=== PATIENT | male | born 1970 | race Caucasian/White ===

== ENCOUNTER 2023-04-21 23:51 | Emergency (ER) | payer MEDICARE, MEDICAID ==
[~2023-04-21] VITALS: Ht 185.4 cm; Wt 95.9 kg
[~2023-04-21 23:51] MED LIST: BACDS PO
[2023-04-22 00:01] VITALS: BP 112/71
[2023-04-22] MEDS ORDERED: TETanus/Pertussis (Acell)/Diphther VAC/PF (Tdap-Adult) 0.5ml syringe IMVAC ONE (04:30)
[2023-04-22] MEDS ORDERED: sulfamethoxazole/trimethoprim DS (800/160mg) tablet PO ONE (04:30)
[2023-04-22] MEDS ORDERED: clindamycin 150mg capsule PO ONE (04:30)
[2023-04-22] MEDS ORDERED: CLIN300C71 PO (04:32)
[2023-04-22] MEDS ORDERED: SULF1TAB49 PO (04:32)
== END 2023-04-22 04:54 | disposition home or self-care (01) ==
LOC: ER 23:52
DX: S80.861A Insect bite (nonvenomous), right lower leg, initial encounter (principal); L03.115 Cellulitis of right lower limb; W57.XXXA Bitten or stung by nonvenomous insect and other nonvenomous arthropods, initial encounter; Y93.89 Activity, other specified; Y92.89 Other specified places as the place of occurrence of the external cause; Y99.8 Other external cause status
CPT/HCPCS: 90471; 90715; 99283

== ENCOUNTER 2025-05-30 22:49 | Inpatient (IN) | payer MEDICAID, MEDICARE ==
[~2025-05-30] VITALS: Ht 185.4 cm; Wt 76.0 kg
[2025-05-30 23:47] LABS: MEAN PLATELET VOLUME 8.4 FL (7.4-10.4); RED CELL DISTRIBUTION WIDTH 15.3 % (11.5-14.5)
[2025-05-31] VITALS (16 sets, daily range): BP systolic 94–139; BP diastolic 67–88; PULSE 60–87; RESP 16–24; TEMP 97.7–98.6; O2SAT 93–100
[2025-05-31 00:04] LABS: CREATININE 1.38 MG/DL (0.60-1.10); PRO BRAIN NATRIURETIC PEPTIDE 115 PG/ML (0-125); TOTAL CARBON DIOXIDE 29.0 MMOL/L (24-32); eCRCL 65 ML/MIN; eGFR 54 ML/MIN
--- NOTE | 2025-05-31 00:07 | RADIOLOGY REPORT ---
CHEST RADIOGRAPH Indication: SOB, PNA Technique: Frontal and lateral view of the chest was obtained Comparison: None FINDINGS: Lines and Tubes: None Lungs: Moderate right perihilar opacification consistent with consolidation versus mass. Pleura: No effusion. No pneumothorax. Cardiomediastinal contours: Unremarkable Bones: Unremarkable IMPRESSION: 1. Right perihilar consolidation versus mass.
--- NOTE | 2025-05-31 02:57 | Physician Documentation ---
History of Present Illness ~ General Chief Complaint: Multiple Medical Complaints Stated Complaint: ASPIRATION Time Seen by MD: 02:56 OK to notify your PCP?: Yes Primary Medical Doctor: None Source: patient, RN/MD, EMS, RN notes reviewed, EMS notes reviewed, old records Mode of Arrival: EMS Exam Limitations: no limitations History of Present Illness Initial Comments 54 year old male with recent pneumonia seen in bed 01 [facility] of multiple medical comp laints. He states that tonight he was eating steak last night and he chocked on it. He has been coughing since eating the steak. He states he has been having difficulty breathing as well as difficulty walking which is new. Additionally he endorses recent fevers. Medication Reconciliation Allergies: Coded Allergies: No Known Allergies (Unverified , 05/30/25) Scheduled Prednisone* (Prednisone*), 3 TAB PO DAILY, (Reported) Miscellaneous Medications Amox Tr/Potassium Clavulanate 875/125 MG (Augmentin 875/125 MG), 1 TAB PO, (Reported) [Albuterol], 90 MCG INH, (Reported) [Unknown], (Reported) Discontinued Medications Sulfamethoxazole/Trimethoprim DS* (Bactrim DS Tab*), 2 TAB PO BID Discontinued Reason: patient no longer taking Past Medical History Past Medical History: Depression, Schizophrenia Past Surgical History: orthopedic surgeries Alcohol Use: Alcoholic Drug Use: methamphetamine Occupation: unemployed Review of Systems All Other Systems at this time: Reviewed and Negative ROS As stated above in the HPI, otherwise all systems are reviewed and negative. Physical Exam Physical Exam Vital Signs: RN Vital Signs have been reviewed: Yes, Temperature: 98.4, Source: Oral, Heart Rate: 91, Respiratory Rate: 14, BP: 139/89, Pulse Oximetry: 96, Weight: 73.200 Oxygen Flow Rate: 0 Pulse Oximetry Reflects: adequate oxygenation Physical Exam General: The patient is well developed, well nourished, nontoxic appearing and is in no acute distress. Skin: [place], warm and dry with no rashes. HEENT: Head was normocephalic and atraumatic. Eyes - pupils equal, round, reactive to light and accommodation. Extraocular movements were intact. Conjunctivae were nonicteric. Ears - bilateral tympanic membranes were normal. The mouth and oropharynx were clear with moist mucous membranes. There were no pharyngeal exudates or erythema. Neck: Supple and nontender. There was no jugular venous distention, lymphadenopathy, thyromegaly or masses. Chest: Rhonchi greater on left than right. No accessory muscle use. No dullness to percussion. Heart: Rate regular and rhythmic. S1, S2. No murmurs. Palpation of the chest wall was normal. No rubs or thrills. Abdomen: Soft, nontender and nondistended. Positive bowel sounds. No guarding or rebound. No hepatosplenomegaly or palpable masses. Extremities: No cyanosis, clubbing or edema. The patient moves all extremities. Pulses were equal and symmetric. Neurologic: Cranial nerves II-XII were intact. Sensation was intact to light touch throughout. Motor strength was 5/5 in all four extremities. Deep tendon reflexes were intact in both upper and lower extremities. Psychologic: The patient was oriented to person, place and time. The patient demonstrated appropriate judgement and insight. Progress Progress Note 7:30 a.m. message left with GI for esophageal obstruction 8:00 a.m. discussed the case with the hospitalist regarding possible aspiration pneumonia admission. As far as the mediastinal mass patient can have an outpatient fine-needle biopsy with Interventional Radiology 8:01 a.m. Cardiothoracic surgery states that that is isn't a procedure they would do and recommends that that can be CT-guided procedure 8:05 a.m. re-contacted the hospitalist regarding aspiration pneumonia leukocytosis need for admission. Mediastinal mass as mentioned above can be done on an outpatient basis and not an oncological emergency, after speaking to the hospitalist concern was that the etiologies of these problems can be related to a compressive mass on esophageal structures. Wants to wait for the input of GI to see if there is any compression. We will re-evaluate the patient after GI procedure. Cat scan however does not mentioned any compression of structures. Patient will be signed out to the morning physician. Results/Orders Reviewed/noted all lab results: Yes Results/Orders Orders - STUART CHÁVEZ MD Chest,Two Views (05/30/25 23:01) Culture Blood (05/30/25 23:01) Saline Lock (05/30/25 23:01) Oxygen (05/30/25 23:01) Ct Chest (05/31/25 03:11) Page Hospitalist (05/31/25 07:26) Fill Out Med Reconciliation (05/31/25 07:26) Md To Page (05/31/25 07:26) Clindamycin 300mg/D5w 50ml (Clindamycin (05/31/25 08:00) Completed Orders - STUART CHÁVEZ MD Chest,Two Views (05/30/25 23:01) Cbc/Diff (05/30/25 23:01) BMP (05/30/25 23:01) PBNP (05/30/25 23:01) Lacticsepsis (05/30/25 23:01) Ct Chest (05/31/25 03:11) Electrocardiogram (05/31/25 00:04) Ipratropium/Albuterol Nebule (Ipratrop/A (05/31/25 08:10) Vital Signs 05/30/25 05/30/25 05/31/25 05/31/25 22:52 23:49 00:12 01:51 Temp 98.4 Pulse 90 83 91 Resp 18 16 20 14 B/P (MAP) 152/104 166/110 (128) 139/89 (106) Pulse Ox 95 96 96 O2 Flow Rate 0 05/31/25 05/31/25 05/31/25 05/31/25 03:32 04:57 06:33 07:33 Pulse 85 79 66 Resp 22 15 18 B/P (MAP) 133/91 (105) 142/89 (106) 143/92 (109) Pulse Ox 93 95 97 O2 Flow Rate 0 05/31/25 07:40 Pulse 72 Resp 12 B/P (MAP) 124/90 (101) Pulse Ox 94 O2 Flow Rate 0 Laboratory Tests Test 05/30/25 23:33 White Blood Count 17.1 H Red Blood Count 4.70 Hemoglobin 13.2 L Hematocrit 39.9 L Mean Corpuscular Volume 84.8 Mean Corpuscular Hemoglobin 28.2 Mean Corpuscular Hemoglobin Concent 33.2 Red Cell Distribution Width 15.3 H Platelet Count 421 Mean Platelet Volume 8.4 Neutrophils (%) (Auto) 77.5 H Lymphocytes (%) (Auto) 6.3 L Monocytes (%) (Auto) 4.0 Eosinophils (%) (Auto) 11.4 H Basophils (%) (Auto) 0.8 Neutrophils # (Auto) 13.3 H Lymphocytes # (Auto) 1.1 Monocytes # (Auto) 0.7 Eosinophils # (Auto) 2.0 H Basophils # (Auto) 0.1 CBC Comment Sodium Level 143 Potassium Level 3.8 Chloride Level 107 Carbon Dioxide Level 29.0 Anion Gap 7 L Blood Urea Nitrogen 17 Creatinine 1.38 H Estimated GFR/1.73 m2 54 BUN/Creatinine Ratio 12.3 Glucose Level 124 H Lactic Acid Level 1.3 Calcium Level 9.4 Pro-B-Type Natriuretic Peptide 115 Albumin 3.3 L Chemistry Comments Microbiology Date/Time Source Procedure Growth Status 05/31/25 01:50 Blood Iv Start Blood Culture - Preliminary NEGATIVE (LESS THAN 24 HOURS) Resulted Re-Evaluation Re-Evaluation : Re-Evaluation: Unchanged Progress Patient was seen and examined. Patient is given reassurance. Patient was found they have some chest pain difficulty breathing as well as swallowing. Patient states he aspirated some meat as well as vomiting up some food. He states he removed three of four pieces of meat. Who presents with laboratory work showing a WBC of 17.1 hemoglobin 13 and 39 platelets 421 and a left shift of 77.5 lactic acid normal at 1.3. This is somewhat consistent with worsening pneumonia aspiration pneumonia. Patient received clindamycin. After CAT scan was obtained cat scan shows esophageal obstruction as well. I contacted GI for possible scoping. Patient is able to tolerate his secretions but there is a foot would bolus seen on CAT scan. Patient states he does not feel well hospitalist was then consulted for further workup and care. Patient will have emergent GI procedure. Continuous monitoring specialist interpretation shows normal sinus rhythm heart rate 80s, no ectopy, normal, my interpretation. Pulse oximetry monitor interpretation shows normal oxygenation at 95% room air, normal, my interpretation. EKG/XRAY/CT/US/VASC/MRI EKG : Additional Comment 0440: BATSHEVA Chávez interpreted EKG to reveal sinus rhythm at a rate of 84 bpm with a QTc of 447. Patient had good R wave progression with normal axis and interv als. Chest X-Ray : Additional Comments CHEST RADIOGRAPH Indication: SOB, PNA Technique: Frontal and lateral view of the chest was obtained Comparison: None FINDINGS: Lines and Tubes: None Lungs: Moderate right perihilar opacification consistent with consolidation versus mass. Pleura: No effusion. No pneumothorax. Cardiomediastinal contours: Unremarkable Bones: Unremarkable IMPRESSION: 1. Right perihilar consolidation versus mass. Electronically Signed by:GARETH DÍAZ MD Date & Time: 05/31/[address] : Impression CT CT CHEST INDICATION: CHEST PAIN EXAM DATE: 05/31/2025 06:34 AM COMPARISON: None RADIATION DOSE: CTDIvol: 10 mGy, DLP: 436 mGy*cm PROCEDURE: Helical CT images were obtained of the chest without intravenous contrast. Sagittal and coronal reconstructions are provided. ADDITIONAL IMAGES / REFORMATS: None All CT scans at this medical facility are performed using dose modulation techniques as appropriate to a performed exam including the following: Automated exposure control was utilized; adjustment of the MA and/or KV according to patient size; and use of iterative reconstruction technique. FINDINGS: Bones: Scattered degenerative changes are noted. Visualized Abdomen: Normal. Chest Wall: Normal. Soft tissues: Normal. Mediastinum: Possible posterior mediastinal mass measures up to 9.3 cm is incompletely visualized without IV contrast. Food debris is seen in the esophagus. Heart: Coronary artery calcifications are noted. Vessels: Normal. Lymph Nodes: Normal. Pleura: Normal. Airways: Debris in the trachea at the [place] and bilateral bronchioles. Lung: Normal. Other: None IMPRESSION: Possible posterior mediastinal mass measures up to 9.3 cm is incompletely visualized without IV contrast. Food debris is seen in the esophagus. Debris in the trachea at the [place] and bilateral bronchioles likely aspiration. Medical Decision Making Additional info obtained from: old records Departure Disposition: ADMITTED INPATIENT Admitted to Inpatient Unit: yes, to hospitalist, other (GI) Admission Level of Care: Med/Surg with Tele Impression: Primary Impression: Right sided pneumonia Additional Impressions: Aspiration pneumonia Qualified Codes: J69.0 - Pneumonitis due to inhalation of food and vomit Distal esophageal obstruction due to foreign body Mediastinal mass Condition: Guarded Referrals: NO PRIMARY CARE PROVIDER (PCP) Education Educated: Patient Educated regarding: diagnosis, prognosis, need for follow up Critical Care Note Total Time (mins): 33 Critical Care Note The very real possibility of a deterioration of this patient's condition required the highest level of my preparedness for sudden, emergent intervention. I provided critical care services, which included medication orders, frequent reevaluations of the patient's condition and response to treatment, ordering and reviewing test results, and discussing the case with various consultants. Excludes time spent performing separately billable procedures. The critical care time associated with the care of the patient was. 33 minutes Signature Scribe Signature: Scribed for Stuart Chávez MD by Georgette Reyna . 05/31/25 03:29 Attestation: The note accurately reflects work and decisions made by me.Stuart Chávez MD 05/31/25 02:57 STUART CHÁVEZ MD May 31, 2025 02:57 GEORGETTE KOVACS May 31, 2025 03:29
--- NOTE | 2025-05-31 06:13 | ELECTROCARDIOGRAPH REPORT ---
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 Stuart Knight Measurements Intervals [place] Rate: 84 P: 40 AR: 163 QRS: 58 QRSD: 100 T: 70 QT: 378 QTc: 447 Interpretive Statements Sinus rhythm RSR' in V1 or V2, probably normal variant ST elev, probable normal early repol pattern Electronically Signed On 05-31-2025 18:54:[address] Stuart Knight Please click the below link to view image of tracing.
--- NOTE | 2025-05-31 07:15 | RADIOLOGY REPORT ---
CT CT CHEST INDICATION: CHEST PAIN EXAM DATE: 05/31/2025 06:34 AM COMPARISON: None RADIATION DOSE: CTDIvol: 10 mGy, DLP: 436 mGy*cm PROCEDURE: Helical CT images were obtained of the chest without intravenous contrast. Sagittal and c oronal reconstructions are provided. ADDITIONAL IMAGES / REFORMATS: None All CT scans at this medical facility are performed using dose modulation techniques as appropriate t o a performed exam including the following: Automated exposure control was utilized; adjustment of th e MA and/or KV according to patient size; and use of iterative reconstruction technique. FINDINGS: Bones: Scattered degenerative changes are noted. Visualized Abdomen: Normal. Chest Wall: Normal. Soft tissues: Normal. Mediastinum: Possible posterior mediastinal mass measures up to 9.3 cm is incompletely visualized wit hout IV contrast. Food debris is seen in the esophagus. Heart: Coronary artery calcifications are noted. Vessels: Normal. Lymph Nodes: Normal. Pleura: Normal. Airways: Debris in the trachea at the [place] and bilateral bronchioles. Lung: Normal. Other: None IMPRESSION: Possible posterior mediastinal mass measures up to 9.3 cm is incompletely visualized without IV contr ast. Food debris is seen in the esophagus. Debris in the trachea at the [place] and bilateral bronchioles likely aspiration.
[2025-05-31] MEDS ORDERED: AMOX-580 PO (07:51)
[2025-05-31] MEDS ORDERED: ALBUTEROL INH (07:51)
[2025-05-31] MEDS ORDERED: PRED20TA PO (07:51)
[2025-05-31] MEDS: clindamycin 300mg/D5W 50mL 50 ML IV SCH (08:19)
[2025-05-31] MEDS: ipratropium/albuterol 3ml nebule NEB ONE ×2 (08:23→08:39)
[2025-05-31] MEDS: albuterol 2.5 MG/3 ML nebule NEB ONE (12:25)
[2025-05-31] MEDS ORDERED: magnesium sulf-water 4G/100mL 100 ML IV PRN (17:00)
[2025-05-31] MEDS ORDERED: magnesium sulf-water 2g/50mL 50 ML IV PRN (17:00)
[2025-05-31] MEDS ORDERED: potassium Cl 20 mEq SR tablet PO PRN ×2 (17:00)
[2025-05-31] MEDS ORDERED: magnesium Cl slow-release 64mg tablet PO PRN (17:00)
[2025-05-31] MEDS ORDERED: potassium Cl 40MEQ/1/2NS 520ml 520 ML IV PRN (17:00)
[2025-05-31] MEDS ORDERED: ondansetron/PF 4mg/2ml inj IV PRN (17:00)
--- NOTE | 2025-05-31 17:07 | HISTORY AND PHYSICAL-Residence ---
History & Physical Providers to CC Resident Creating Document: NYLA ODEN RES ~ History of Present Illness Primary Medical Doctor: None Reason for Admit\\Complaint: Chock on food, SOB History of Present Illness This is a 54-year-old homeless male residing at the [place], with a history of bipolar disorder, schizophrenia, and chronic methamphetamine use for 30 years. He also reports a 30+ year history of tobacco use (both cigarettes and cigar) and occasional marijuana use. He presented to the ER after experiencing choking on food two nights ago, followed by progressive shortness of breaths. He reports using inhaler at home without relief in his now unable to walk down the street due to exertional dyspnea. He also endorses a persistent productive cough of green sputum, which has occasionally led to vomiting. Additional symptoms include significant unintentional weight loss "big time", poor appetite, and postprandial abdominal pain. The patient reports a seven month history of dysphagia with a sensation of food getting stuck in his throat, which he has managed by drinking water to facilitate swallowing. I have discussed advance care planning with the patient. The patient has decided on a full code status. ED course: CT chest revealed a posterior mediastinal mass measuring > 9 cm. An EGD was performed today and food particles were removed; final report is pending. He is currently admitted for management of aspiration pneumonia. Allergies: Coded Allergies: No Known Allergies (Unverified , 05/30/25) Home Medications Home Medications Active Reported [Albuterol] 90 Mcg INH Augmentin 875/125 MG (Amoxicillin/Clavulanate Potassium) 875 Mg-125 Mg Tablet 1 Tab PO Prednisone* (Prednisone) 20 Mg Tablet 3 Tab PO DAILY [Unknown] Past Medical History Past Medical History No significant past medical history Past Surgical History Surgical History Comment Broken femur Past Social History Social History Comment Homeless, Lives in [place], smokes cigarettes for 30 years, smoking methamphetamine for 30 years. Smoked marijuana. No alcohol consumption Smoking: Cigarettes Alcohol Use: Alcoholic Drug Use: Methamphetamine Occupation: unemployed ROS All Other Systems: Reviewed and Negative ROS As stated above in the HPI, otherwise all systems are reviewed and negative. Exam Vitals: Vital Signs Date Time Temp Pulse Resp B/P (MAP) Pulse Ox O2 Delivery O2 Flow Rate FiO2 05/31/25 15:29 55 17 111/75 (87) 99 0 05/31/25 14:20 97.9 05/31/25 14:06 Room Air 7/26/25 08:35 21 General: Awake and Alert, coughing throughout the exam HEENT: Conjunctiva pink, Sclera clear, Mucus Membranes moist. Neck: Supple without masses and tenderness. Resp: Diffuse bilateral Crackles, rhonchi, and wheezing Heart: Regular Rate and rhythm, normal S1 and S2 without murmur, rub or gallop. Abdomen: Soft and non tender no organomegaly Extremities: No cyanosis,clubbing or edema. Skin: Warm and Dry. Diagnostic Data Last Recorded Lab Results: 05/30/25 2333 05/30/25 2333 Advance Care Planning Advanced Care plannin - 30 Minutes Additional Plan Aspiration pneumonia Present with a SOB, productive cough with green sputum, and imaging consistent with aspiration (debris in trachea & bronchiols). Likely precipitated by dysphagia and recent choking episode WBC elevated at 17.1, consistent with infection process Empiric antibiotics i.e. Zosyn initiated DuoNeb nebulization every 4 hours as scheduled, and every 4 hours as needed Chest physical therapy Flutter valve Posterior mediastinal mass (9.3 cm) Large mass noted on CT Malignancy is a concern given size, location, and associated weight loss Patient will benefit from CT-guided biopsy by IR Dysphagia with chronic food impaction symptoms History of seven months of food stuck in the throat relieved only with water EGD showed food particle impaction; removed Keep patient NPO, Speech and swallow evaluation requested Acute kidney injury, likely renal tubular stasis Creatinine 1.38, unknown baseline Likely prerenal from poor oral intake or mild dehydration IV hydration; NS 100 mL/hours Monitor BMP and urine output daily Follow urine lytes History of bipolar disorder and she is a frail hernia Currently not on medication Monitor for sign of psychosis Substance use disorder Long-term methamphetamine use, Tobacco, and marijuana Urine toxicology ordered caregiver services home consult requested Provided nicotine replacement Homelessness Unstable social situation caregiver services home consult requested Case management for safe disposition given aspiration risk and potential malignancy diagnosis Code status: Full code DVT prophylaxis: Kyra Oden Internal Medicine Resident Date of Service: May 31, 2025 Billing Provider: JORDANA ELY MD Common Visit Codes: 79175-[id number] INP/OBS CARE (HIGH) Secondary Visit Codes: 63705-TJIHVGCZ CARE PLAN 30 MINUTES NYLA ODEN, FARHEEN May 31, 2025 17:07 JORDANA ELY MD Jun 01, 2025 21:47
[2025-05-31] MEDS ORDERED: ipratropium/albuterol 3ml nebule NEB PRN (17:25)
[2025-05-31] MEDS: nicotine 21mg patch - 24 hr TD ONE (18:02)
[2025-05-31] MEDS: normal saline 1000ml 1,000 ML IV SCH (18:02)
[2025-05-31] MEDS ORDERED: iohexol 300mg/ml 100ml inj. ONE (18:17)
[2025-05-31 19:28] LABS: CREATININE,URINE RANDOM 240.0 MG/DL; URINE AMPHETAMINE SCREEN POSITIVE (Neg); URINE BARBITUATE SCREEN NEGATIVE (Neg); URINE BENZODIAZEPINES SCREEN NEGATIVE (Neg); URINE CANNABINOID SCREEN POSITIVE (Neg); URINE COCAINE SCREEN NEGATIVE (Neg); URINE METHADONE SCREEN NEGATIVE (Neg); URINE OPIATE SCREEN NEGATIVE (Neg); URINE PHENCYCLIDINE SCREEN NEGATIVE (Neg)
[2025-05-31] MEDS: ipratropium/albuterol 3ml nebule NEB SCH (19:42)
[2025-05-31] MEDS: K and/or MAG REPLACEMENT MC SCH (20:00)
--- NOTE | 2025-05-31 20:49 | RADIOLOGY REPORT ---
Procedure: CT CT CHEST ABDOMEN PELVIS 05/31/2025 06:28 PM Indication: mediastinal mass; evaluate for cancer Comparison Study: None Technique: Axial images were obtained and reformatted in coronal and sagittal planes. All CT scans at this medical facility are performed using dose modulation techniques as appropriate to a performed e xam including the following: Automated exposure control was utilized; adjustment of the MA and/or KV according to patient size; and use of iterative reconstruction technique. CT Dose: CTDI volume is 13. 82 mGy. Dose-length product is 1222.80 mGy*cm FINDINGS: CT chest: The thyroid gland is unremarkable. Large posterior mediastinal heterogeneous mass measuring about 6 by 11.2 by 11.1 cm which extends int o the distal trachea and bilateral main bronchi. The esophagus is not visualized at the level of the mass with layering fluid within the mildly disten ded esophagus proximal to the mass and wall thickening of the esophagus distal to the mass There is mediastinal and bilateral hilar lymphadenopathy which are most likely neoplastic. Heart size is within normal limits with anterior displacement of the heart. No pulmonary embolism. Th e pulmonary trunk is normal in size. There is splaying of the pulmonary arteries by the mass. No pneumothorax, pleural effusion or focal airspace consolidation. Bibasilar and bilateral perihilar atelectasis . Bilateral upper lobe predominant paraseptal emphysematous changes with right anterior medial upper lobe atelectasis. Soft tissues are unremarkable. No destructive osseous lesions are noted. Abdomen and pelvis: Nonspecific 1.2 x 1.1 cm hypodensity within the left hepatic lobe adjacent to the falciform ligament which does not measure simple fluid. Mild hepatomegaly. Spleen, gallbladder, pancreas and adrenal gla nds are unremarkable. Subcentimeter hypodense right renal lesion that is too small to characterize. Otherwise, Kidneys, ur eters and mildly distended urinary bladder unremarkable. Prostate is unremarkable. Mild gastric wall thickening. Mild wall thickening of proximal small bowel. Remainder of the small b owel loops unremarkable. Appendix is unremarkable. Small to moderate amount of fecal material within the colon. Suggested calcified epiploic appendage within the right posterior pelvis No evidence of intraperitoneal free air or free fluid. No evidence of aortic aneurysm or dissection. Mild atherosclerotic calcification of the aorta and bilateral iliacs. Left upper epigastric region prominent lymph node measuring up to 1.7 cm in short axis which is most likely neoplastic. Soft tissues unremarkable. Small fat containing umbilical hernia. Tiny fat containing right inguinal hernia. Partially visualized left femoral intramedullary fixation marck. No evidence of acute bony abno rmalities. IMPRESSION: Large posterior mediastinal heterogeneous mass measuring about 6 by 11.2 by 11.1 cm which extends int o the distal trachea and bilateral main bronchi. The esophagus is not visualized at the level of the mass with layering fluid within the mildly disten ded esophagus proximal to the mass and wall thickening of the esophagus distal to the mass. The mass may represent an esophageal mass with invasion of the trachea and bronchi versus mediastinal mass wi th invasion of the esophagus ,distal trachea and adjacent bronchi. Neoplastic mediastinal and hilar lymph nodes are noted. Neoplastic left epigastric region node is noted. Mild wall thickening of the stomach and proximal small bowel. Correlate for gastroenteritis. 1.2 x 1.1 cm hypodense hepatic lesion adjacent to the falciform ligament which does not measure simpl e fluid. Hepatic protocol CT/ MRI may be considered for further evaluation. Additional findings as above.
[2025-05-31] MEDS: piperacillin/tazo 3.375gm/50ml 50 ML IV SCH (23:42)
[2025-06-01] VITALS (16 sets, daily range): BP systolic 111–128; BP diastolic 63–71; PULSE 63–86; RESP 15–20; TEMP 97.6–98.5; O2SAT 90–97
[2025-06-01 07:35] LABS: MEAN PLATELET VOLUME 8.5 FL (7.4-10.4); RED CELL DISTRIBUTION WIDTH 15.3 % (11.5-14.5)
[2025-06-01 08:09] LABS: CREATININE 1.09 MG/DL (0.60-1.10); TOTAL CARBON DIOXIDE 28.9 MMOL/L (24-32); eCRCL 82 ML/MIN; eGFR 71 ML/MIN
[2025-06-01] MEDS: methylPREDNISolone sod succ/PF 40mg inj. IV SCH (09:32)
[2025-06-01] MEDS: enoxaparin 40mg/0.4ml syringe SUBCUT SCH (09:33)
--- NOTE | 2025-06-01 16:40 | PROGRESS NOTE- Residence ---
Progress Note - Resident Providers to CC Resident Creating Document: LOW KAMARA RES ~ Antibiotic Timeout Antibiotic Ordered?: Yes Subjective Patient is seen and examined at the bedside today. Reports he is able to swallow no difficulty. Dr. Wilde consulted, we will see the patient tomorrow Objective Vital Signs Date Time Temp Pulse Resp B/P (MAP) Pulse Ox O2 Delivery O2 Flow Rate FiO2 06/01/25 12:33 84 18 Room Air 0.0 06/01/25 12:26 90 21 06/01/25 06:00 97.6 124/71 (88) Result Diagram: 06/01/25 0648 06/01/25 0648 General: Awake and Alert, coughing throughout the exam HEENT: Conjunctiva pink, Sclera clear, Mucus Membranes moist. Neck: Supple without masses and tenderness. Resp: Diffuse bilateral Crackles, rhonchi, and wheezing Heart: Regular Rate and rhythm, normal S1 and S2 without murmur, rub or gallop. Abdomen: Soft and non tender no organomegaly Extremities: No cyanosis,clubbing or edema. Skin: Warm and Dry. Plan Plan Assessment This is a 54-year-old homeless male residing at the [facility], with a history of bipolar disorder, schizophrenia, and chronic methamphetamine use for 30 years, 30+ year history of smoking history. He came with a complaint of choking on food, shortness of breadth, weight loss, dysphagia. CT showed mediastinal mass> 9 cm. EGD was performed, showed food particles which were removed. Dr. Wilde consulted, we will see the patient tomorrow, please call him again tomorrow Plan Aspiration pneumonia Presented with SOB, productive cough with green sputum, and imaging consistent with aspiration (debris in trachea & bronchiols). Likely precipitated by dysphagia and recent choking episode WBC elevated at 17.1, consistent with infection process Empiric antibiotics i.e. Zosyn initiated DuoNeb nebulization every 4 hours as scheduled, and every 4 hours as needed Chest physical therapy Flutter valve 06/01/2025 WBC trended down 16.4 Zosyn continued methyl Prednisone 40 mg b.i.d. Posterior mediastinal mass (9.3 cm) Large mass noted on CT CT IV contrast-6x11.2x11.1 cm mass extending in to distal trachea and bilateral main bronchi, the mass may represent esophageal mass with invasion of trachea and bronchi vs mediastinal mass with invasion of esophagus, distal trachea, adjacent bronchi. Neoplastic mediastinal, hilar, lift epigastric node Patient will benefit from CT-guided biopsy by IR Dr. Wilde consulted, please call him again tomorrow. Dysphagia with chronic food impaction symptoms History of seven months of food stuck in the throat relieved only with water EGD showed food particle impaction; removed On regular diet. Acute kidney injury, likely renal tubular stasis-resolved Creatinine 1.38, unknown baseline Likely prerenal from poor oral intake or mild dehydration IV hydration; NS 100 mL/hours Monitor BMP and urine output daily 06/01/2025-creatinine improved to 1.09 History of bipolar disorder Currently not on medication Monitor for sign of psychosis Substance use disorder Long-term methamphetamine use, Tobacco, and marijuana Urine toxicology positive for methamphetamine, fentanyl, cannabinoids surgical services assistant consult requested Provided nicotine replacement Homelessness Unstable social situation surgical services assistant consult requested Case management for safe disposition given aspiration risk and potential malignancy diagnosis Code status: Full code DVT prophylaxis: Lovenox Low Kamara M.D PGY2 Date of Service: Jun 01, 2025 Billing Provider: JORDANA ELY MD Common Visit Codes: [id number] INP/OBS CARE(HIGH) LOW KAMARA, RES Jun 01, 2025 16:40 JORDANA ELY MD Jun 01, 2025 21:48
--- NOTE | 2025-06-01 18:56 | CARDIOLOGY REPORT ---
APPROVED REPORT EXAM: Comprehensive 2D, Doppler, and color-flow Echocardiogram. Patient Location: 3[address] Blood Pressure: 124/71 mmHg Heart Rate: 63 bpm Rhythm: SINUS Indications CARDIOMYOPATHY ASPIRATION PNEUMONIA POSTERIOR MEDIASTINAL MASS (9.3 CM) Board Winder: none Previous echo: none 2D Dimensions RVDd 3.7 cm IVSd 1.0 (0.7-1.1cm) LVDd 4.1 cm PWd 1.1 (0.7-1.1cm) IVSs 1.3 (0.8-1.2cm) LVDs 2.8 (2.5-4.0cm) PWs 1.4 (0.8-1.2cm) LVOT Diameter 2.29 (1.8-2.4cm) IVC 21.90 mmFS (%) 31.4 % SV 43.4 ml CO 4.3 L/min M-Mode Dimensions Left Atrium(MM) 3.11 (2.5-4.0cm) IVSd 0.73 (0.7-1.1cm) LVDd 4.43 (4.0-5.6cm) Aortic Root 3.11 (2.2-3.7cm) PWd 1.21 (0.7-1.1cm) Aortic Cusp Exc 2.01 (1.5-2.0cm) IVSs 1.21 cm LVDs 2.38 (2.0-3.8cm) FS (%) 46 % PWs 1.90 cm ESV(Teich) 19.7 ml LVEF(%) 70 (>50%) Aortic Valve AoV Peak Geremias. 147.4 cm/s AoV VTI 25.4 cm AO Peak GR. 8.7 mmHg AO Mean GR. 5 mmHg LVOT VTI 20.78 cm LVOT Peak Geremias. 109.7 cm/s CHEMO(VTI)/BSA 3.43 cm2/m2 CHEMO (VTI) 3.43 cm2 AI P 1/2 Time 556 ms Mitral Valve MV E Velocity 84.9 cm/s MV Peak Gr. 4 mmHg MV DECEL TIME 212 ms MV A Velocity 53.9 cm/s MV PHT 52 ms E/A Ratio 1.6 MVA (PHT) 4.23 cm2 MV SCuu006.3 cm/s TDI Medial E' P. V 10.13 cm/s E/Medial E' 8.4 Pulmonary Vein S1 Velocity 60.8 cm/s D2 Velocity 96.5 cm/s PVa Omqqtthq32.8 cm/s PVa Lqfpsloo92 msec LEFT VENTRICLE Normal LV size and wall thickness. Overall systolic function is normal. LVEF is 65-70%. RIGHT VENTRICLE RV is mildly dilated in size with normal function. ATRIA The left atrium size is normal. The right atrium size is normal. AORTIC VALVE Trileaflet AV appears mildly sclerotic without stenosis. Mild insufficiency. MITRAL VALVE Mild MV annular calcification without stenosis. Mild regurgitation. TRICUSPID VALVE TV appears structurally normal with trace regurgitation. PULMONIC VALVE Normal PV without stenosis, physiologic insufficiency. GREAT VESSELS The aortic root is normal in size. IVC is dilated and collapses greater than 50% with inspiration. PERICARDIUM Normal pericardium. No effusion. Known mediastinal mass best visualized in apical 4 chamber next to t he left atrium. Entirety of mass not well visualized. Other Information Study Quality: Adequate Conclusion Normal LV size and wall thickness. Overall systolic function is normal. LVEF is 65-70%. RV is mildly dilated in size with normal function. The left atrium size is normal. Trileaflet AV appears mildly sclerotic without stenosis. Mild insufficiency. Mild MV annular calcification without stenosis. Mild regurgitation. TV appears structurally normal with trace regurgitation. Normal pericardium. No effusion. ?Known mediastinal mass best visualized in apical 4 chamber next t o the left atrium. Entirety of mass not well visualized.
[2025-06-02 02:00] VITALS: BP 128/79; PULSE 62; RESP 17; TEMP 97.9; O2SAT 97
[2025-06-02 06:42] LABS: MEAN PLATELET VOLUME 8.4 FL (7.4-10.4)
[2025-06-02 06:44] LABS: RED CELL DISTRIBUTION WIDTH 15.1 % (11.5-14.5)
[2025-06-02 07:00] VITALS: BP 127/79; PULSE 61; RESP 14; TEMP 97.3; O2SAT 97
[2025-06-02 07:01] LABS: CREATININE 1.04 MG/DL (0.60-1.10); TOTAL CARBON DIOXIDE 29.5 MMOL/L (24-32); eCRCL 89 ML/MIN; eGFR 75 ML/MIN
[2025-06-02 07:40] LABS: EOSINOPHILS % (MANUAL) 14.0 % (0-6); LYMPHOCYTES % (MANUAL) 17.0 % (21-51); MONOCYTES % (MANUAL) 8.0 % (2-12); NEUTROPHILS % (MANUAL) 61.0 % (42-75); PLATELET ESTIMATE NORMAL
[2025-06-02 08:16] VITALS: PULSE 83; RESP 17; O2SAT 97
[2025-06-02 11:03] VITALS: PULSE 70; RESP 18; O2SAT 94
[2025-06-02 11:08] VITALS: PULSE 73; RESP 17
--- NOTE | 2025-06-02 13:46 | CONSULTATION REPORT ---
Consult Providers to CC ~ History of Present Illness Reason for Admit\Complaint: Mediastinal mass History of Present Illness 54-year-old male with a history of bipolar disorder as well as schizoaffective disorder and chronic methamphetamine use for 30 years who was admitted to the emergency room after choking on food. He according to his nurse apparently had an upper GI endoscopy that retrieved some food address from his esophagus. I do not see a note to this effect on his chart. I was called to see the patient because his CAT scan of the chest revealed a mediastinal mass with some mediastinal lymphadenopathy. The patient has been coughing, but denies any shortness of breath and further denies any chest pain. He also denies hemoptysis. Allergies: Coded Allergies: No Known Allergies (Unverified , 05/30/25) Home Medications Home Medications Active Reported [Albuterol] 90 Mcg INH Augmentin 875/125 MG (Amoxicillin/Clavulanate Potassium) 875 Mg-125 Mg Tablet 1 Tab PO Prednisone* (Prednisone) 20 Mg Tablet 3 Tab PO DAILY [Unknown] Past Medical History Past Medical History Bipolar disorder, schizoaffective disorder Past Surgical History Surgical History Comment Noncontributory Family History Family History: Patient reports no known family medical history. Past Social History Social History Comment Chronic meth user, everyday smoker. ROS ROS A 10 point review of systems was obtained that is as in history of present illness and past medical history. Exam Vitals: Vital Signs Date Time Temp Pulse Resp B/P (MAP) Pulse Ox O2 Delivery O2 Flow Rate FiO2 06/02/25 11:08 73 17 Room Air 0.0 06/02/25 11:03 94 21 06/02/25 07:00 97.3 127/79 (95) General: No apparent distress HEENT: N/C/AT Neck: No lymphadenopathy Chest: Symmetric expansion bilaterally, with bilateral diffuse wheezing Cardiovascular: Regular rate and rhythm Abdomen: Nondistended, normoactive bowel sounds soft nontender no organomegaly. Extremities: No cyanosis, no clubbing and edema. Central Nervous System: No focal deficits Diagnostic Data Last Recorded Lab Results: 06/02/2560406/02/25604 Additional Plan 54-year-old male with a history of active cigarette smoking who has a mediastinal mass. The mediastinal mass is lung cancer unless proven otherwise. I conveyed the concern that he more than likely has lung cancer and that he would require bronchoscopy for tissue sampling to facilitate initiation of treatment. Another patient was wheeled into the room and the patient was not happy about that. He decided to sign against medical advice. I again emphasized to him the need for bronchoscopy and tissue sampling to facilitate initiation of treatment but he told me that he had decided to leave the hospital. He was aware that lung cancer we will lead to . BRIGID GRIGSBY MD Jun 02, 2025 13:46
--- NOTE | 2025-06-02 15:55 | DISCHARGE SUMMARY-Residence ---
Discharge Summary Providers to CC Resident Creating Document: ARETHA CASTANEDA RES ~ Discharge Summary Admission Diagnosis: Likely Aspiration Pneumonia Hospital Course DATE OF ADMISSION: 05/31/2025 DATE OF DISCHARGE: 06/02/2025 As in HPI: This is a 54-year-old homeless male residing at the [facility], with a history of bipolar disorder, schizophrenia, and chronic methamphetamine use for 30 years. He also reports a 30+ year history of tobacco use (both cigarettes and cigar) and occasional marijuana use. He presented to the ER after experiencing choking on food two nights ago, followed by progressive shortness of breaths. He reports using inhaler at home without relief in his now unable to walk down the street due to exertional dyspnea. He also endorses a persistent productive cough of green sputum, which has occasionally led to vomiting. Additional symptoms include significant unintentional weight loss "big time", poor appetite, and postprandial abdominal pain. The patient reports a seven month history of dysphagia with a sensation of food getting stuck in his throat, which he has managed by drinking water to facilitate swallowing. I have discus sed advance care planning with the patient. The patient has decided on a full code status. ED course: CT chest revealed a posterior mediastinal mass measuring > 9 cm. An EGD was performed today and food particles were removed; final report is pending. He is currently admitted for management of aspiration pneumonia. During his hospital stay, a chest CT showed a Large posterior mediastinal heterogeneous mass measuring about 6 by 11.2 by 11.1 cm which extends into the distal trachea and bilateral main bronchi and Debris in the trachea at the [place] and bilateral bronchioles. Acute kidney injury likely due to renal tubular stasis resolved. EGD was done which did not show any esophageal mass. Pulmonology consult was requested. Dr. Wilde examined the patient and reviewed the chart. He recommended a bronchoscopy with biopsy. But, the patient did not want to pursue any further evaluation and left AMA understanding the risk of if the mass is not evaluated or treated. Echocardiogram showed 65-70%, mild mitral regurgitation General: Alert and oriented x 4 HEENT: Normocephalic and atraumatic. Pupils equal round and reactive to light and accommodation. Extraocular movements intact. Oral and nasal mucosa moist Neck: Trachea is in midline. No masses or JVD Lungs: Bilateral mildly decreased breath sounds. Bilateral rhonchi present. No crackles or wheeze Heart: Regular rate and rhythm. S1-S2 normal. No rubs or murmurs Abdomen: Soft, nontender and nondistended. Bowel sounds present CIGAR PACKING EXAMINER: No gross sensory or motor abnormalities Extremities: No cyanosis, clubbing or edema Skin: Warm and dry Aretha Castaneda MD Internal Medicine Resident, PGY 3 Discharge Diagnosis\\Comment: Aspiration pneumonia Large posterior mediastinal mass Dysphagia with chronic food impactions symptoms Acute kidney injury Methamphetamine abuse Operations\\Procedures: EGD Consultants: GI-Dr. Saez, pulmonology-Dr. Wilde Complications: None Condition on DC: Stable Discharge Summary: As above *Problems/Diagnosis: (1) Mediastinal mass Status: Acute Total Time Spent on D/C: > 30 Minutes Date of Service: Jun 02, 2025 Billing Provider: JORDANA ELY MD Common Visit Codes: 47510-MMN/OBS DISCH DAY >30min ARETHA CASTANEDA RES Jun 02, 2025 15:51 JORDANA ELY MD Jun 02, 2025 21:05
--- NOTE | 2025-06-04 18:01 | PATHOLOGY REPORT ---
[facility] [address] [place] [address] SURGICAL PATHOLOGY REPORT CaseNumber: [id number] Surgeon:Isabel Ernst P.A.-C CLINICAL INFORMATION CLINICAL INFORMATION: FB blockage. DIAGNOSIS DIAGNOSIS: STOMACH, ANTRUM; BIOPSY - MILD CHRONIC GASTRITIS. - NEGATIVE FOR INTESTINAL METAPLASIA. - NEGATIVE FOR HELICOBACTER PYLORI. MICROSCOPIC DESCRIPTION MICROSCOPIC DESCRIPTION: A single H&E stained slide is reviewed of the gastric antral biopsy. Present is mild chronic gastritis. The mucosa is intact without erosion or ulceration. There is no increased number of intraepithelial lymphocytes or neutrophils. The lamina propria is expanded by a slight increased content of fibrous t issue which distorts the glandular architecture to a slight extent. There is no malignancy. An A lcian blue/PAS stain was performed. The control stains appropriately positive and negative. No intest inal metaplasia is identified. An immunoperoxidase stain was performed. The antibody utilized wa s to H. pylori. No stainable organisms are identified. (bb) GROSS DESCRIPTION GROSS DESCRIPTION: Received in a container of formalin labeled with the patients name, number, and "a ntrum BX" is a 0.5 x 0.3 x 0.2 cm piece of coffey tissue. The specimen is entirely submitted as A1. The time at which the specimen was removed was 1200. The time at which the specimen was placed in formal in was 1200. Electronically signed by: Sourav Grover M.D. 06/04/2025 5:27:00 PM
== END 2025-06-02 12:57 | disposition left against medical advice (07) | DRG 137 ==
LOC: ER 22:49 → ED HOLD 05-31 16:26 → PCU 3S 05-31 19:00
PROVIDERS: ADMIT Internal Medicine; ATTEND Internal Medicine
PROC: 0DB78ZX Excision of Stomach, Pylorus, Via Natural or Artificial Opening Endoscopic, Diagnostic (ICD-10-PCS; 2025-05-31)
PROC: 0DC28ZZ Extirpation of Matter from Middle Esophagus, Via Natural or Artificial Opening Endoscopic (ICD-10-PCS; principal; 2025-05-31 12:15)
DX: J69.0 Pneumonitis due to inhalation of food and vomit (principal); N17.0 Acute kidney failure with tubular necrosis; K22.2 Esophageal obstruction; T18.128A Food in esophagus causing other injury, initial encounter; R22.2 Localized swelling, mass and lump, trunk; F31.9 Bipolar disorder, unspecified; F15.10 Other stimulant abuse, uncomplicated; F17.200 Nicotine dependence, unspecified, uncomplicated; W44.F3XA Food entering into or through a natural orifice, initial encounter; Z59.00 Homelessness unspecified; Y93.89 Activity, other specified; Y92.89 Other specified places as the place of occurrence of the external cause; Y99.8 Other external cause status; Z53.29 Procedure and treatment not carried out because of patient's decision for other reasons
CPT/HCPCS: 36415; 43239; 43247; 71046; 71250; 71260; 74177; 80048; 80053; 80305; 82570; 83605; 83880; 84300; 85007; 85025; 87040; 87081; 92508; 92616; 93005; 93306; 94640; 94664; 94668; 94760; 96366; 96374; 99291; A6449; C1769; C1889; G0378; J1650; J2543; J2919; J3490; J7030; Q9967

== ENCOUNTER 2025-06-11 20:52 | Inpatient (IN) | payer MEDICAID ==
[~2025-06-11] VITALS: Ht 185.4 cm; Wt 82.4 kg
[~2025-06-11 20:52] MED LIST changes: +ALBUTEROL INH; +AMOX-580 PO; -BACDS PO; +PRED20TA PO
--- NOTE | 2025-06-11 21:23 | Physician Documentation ---
History of Present Illness ~ Chief Complaint: Shortness of Breath Stated Complaint: SOB Time Seen by MD: 21:12 Primary Medical Doctor: None Mode of Arrival: EMS, Stretcher HPI 54-year-old male who is homeless and stays at the [facility] presenting with acute onset shortness of breath that has been ongoing for the past couple of days. Patient states that he has noticed that every time he breathes deep he also has chest pain. He has been unable to walk around very much as he gets extremely short of breath. He recently was diagnosed with COPD although he is not on any medication. Reports that he has been coughing and producing white sputum as well. Also endorses extreme fatigue that has been worsening. Denies any fever, chills or any other associated symptoms. Patient was recently admitted to this hospital and left AMA for similar symptoms. At that time he was found to have a large mediastinal mass. He was said to have a bronchoscopy done but left AMA before it could be done as he did not want the procedure at that time. Medication Reconciliation Allergies: Coded Allergies: No Known Allergies (Unverified , 05/30/25) Scheduled Prednisone* (Prednisone*), 3 TAB PO DAILY, (Reported) Miscellaneous Medications Amox Tr/Potassium Clavulanate 875/125 MG (Augmentin 875/125 MG), 1 TAB PO, (Reported) [Albuterol], 90 MCG INH, (Reported) [Unknown], (Reported) Past Medical History Past Medical History: COPD, Depression, Schizophrenia Past Surgical History: orthopedic surgeries Patient History: Patient reports no known family medical history. Alcohol Use: Alcoholic Drug Use: methamphetamine Occupation: unemployed Review of Systems All Other Systems at this time: Reviewed and Negative Physical Exam Vital Signs: Temperature: 98.0, Source: Oral, Heart Rate: 92, Respiratory Rate: 20, BP: 109/68, Pulse Oximetry: 94, Weight: 82.400 Oxygen Flow Rate: 0 Physical Exam I have reviewed the triage vitals. CONST: Disheveled, unkempt, in no acute distress HENT: Head Atraumatic EYES: Pupils are equal, round and reactive to light. Normal conjunctiva NECK: Normal range of motion. Supple. CARDIO: Normal rate and regular rhythm. No murmurs, rubs, or gallops. S1, S2. PULM/CHEST: Slight wheezes bilaterally. Lungs clear to auscultation. No wheeze ABD: Soft and nontender. Nondistended. Bowel sounds normal. No guarding. : Exam deferred MSK: No edema. No deformity. NEURO: Alert and oriented to person, place and time. Moving all extremities SKIN: Warm and dry. PSYCH: Normal mood and affect. Good eye contact. Progress Results/Orders Results/Orders Orders - MURTAZA JOY MD Electrocardiogram (06/11/25 21:17) Culture Blood (06/11/25 21:17) Chest,Single View (06/11/25 22:01) * Rt Notification Q1H (06/11/25 21:17) Page Hospitalist (06/12/25 02:16) Fill Out Med Reconciliation (06/12/25 02:16) Completed Orders - MURTAZA JOY MD Cbc/Diff (06/11/25 21:17) Chest,Single View (06/11/25 22:01) PBNP (06/11/25 21:17) MG (06/11/25 21:17) CMP (06/11/25 21:17) Hs Troponin I W Calculations (06/11/25 21:17) Hs Troponin I W Calculations (06/11/25 23:17) Hs Troponin I W Calculations (06/12/25 00:17) Lacticsepsis (06/11/25 21:17) Normal Saline 1000ml (0.9% Sodium Chlori (06/11/25 21:20) Prednisone Tablet (Prednisone Tablet) (06/11/25 21:20) Albuterol 2.5mg/3ml Nebule (Proventil 2. (06/11/25 21:20) Ketorolac Trometh 30mg/Ml Vial (Toradol (06/11/25 21:20) Medications Received in ER Medications (Trade) Dose Ordered Sig/Eugenie Route PRN Reason Start Time Stop Time Status Last Admin Dose Admin Sodium Chloride 1,000 ml @ 1,000 mls/hr ONCE ONCE IV 06/11/25 21:20 06/11/25 22:19 DC 06/11/25 21:48 1,000 MLS/HR (predniSONE tablet) 60 mg ONCE ONCE PO 06/11/25 21:20 06/11/25 21:21 DC 06/11/25 21:48 60 MG (Proventil 2.5 MG/3ML nebule) 2.5 mg ONCE ONCE NEB 06/11/25 21:20 06/11/25 21:21 DC 06/11/25 21:34 2.5 MG (Toradol inj. 30mg/ml) 30 mg ONCE ONCE IV 06/11/25 21:20 06/11/25 21:21 DC 06/11/25 21:48 30 MG Vital Signs 06/11/25 06/11/25 06/11/25 06/11/25 20:57 21:06 21:39 21:44 Temp 98.0 Pulse 92 93 101 Resp 20 20 24 24 B/P (MAP) 109/68 Pulse Ox 94 92 100 O2 Delivery Room Air* Room Air* O2 Flow Rate 0 0 0 FiO2 N/A N/A Laboratory Tests Test 06/11/25 21:27 06/11/25 23:18 06/12/25 00:16 White Blood Count 13.2 H Red Blood Count 4.64 L Hemoglobin 13.0 L Hematocrit 39.4 L Mean Corpuscular Volume 85.0 Mean Corpuscular Hemoglobin 28.0 Mean Corpuscular Hemoglobin Concent 33.0 Red Cell Distribution Width 15.1 H Platelet Count 382 Mean Platelet Volume 8.1 Neutrophils (%) (Auto) 61.0 Lymphocytes (%) (Auto) 13.6 L Monocytes (%) (Auto) 6.1 Eosinophils (%) (Auto) 18.1 H Basophils (%) (Auto) 1.2 H Neutrophils # (Auto) 8.1 H Lymphocytes # (Auto) 1.8 Monocytes # (Auto) 0.8 Eosinophils # (Auto) 2.4 H Basophils # (Auto) 0.2 CBC Comment Sodium Level 140 Potassium Level 4.2 Chloride Level 104 Carbon Dioxide Level 28.1 Anion Gap 8 Blood Urea Nitrogen 20 H Creatinine 1.38 H Estimated GFR/1.73 m2 54 BUN/Creatinine Ratio 14.5 Glucose Level 103 Lactic Acid Level 1.0 Calcium Level 9.2 Magnesium Level 2.2 Total Bilirubin 0.6 Aspartate Amino Transf (AST/SGOT) 9 L Alanine Aminotransferase (ALT/SGPT) 11 L Alkaline Phosphatase 92 Troponin I High Sensitivity 5 5 4 Pro-B-Type Natriuretic Peptide 83 Total Protein 7.9 Albumin 3.0 L Globulin 4.9 H Albumin/Globulin Ratio 0.6 L Chemistry Comments Troponin I High Sens Percent Delta 0 20 Troponin I Hi Sens Absolute Change 0 -1 Microbiology Date/Time Source Procedure Growth Status 06/11/25 21:30 Blood Arm Left Blood Culture - Preliminary NEGATIVE (LESS THAN 24 HOURS) Resulted EKG/XRAY/CT/US/VASC/MRI EKG : Additional Comment EKG as interpreted by me indicating normal sinus rhythm with a rate of 96 beats per minute, normal axis, no ischemia Chest X-Ray : Additional Comments CHEST RADIOGRAPH Indication: SOB Technique: 1 view Comparison: CT CT CHEST ABDOMEN PELVIS on DOS: 05/31/25, CT CT CHEST on DOS: 05/31/25, DI CHEST,TWO VIEWS on DOS: 05/30/25 FINDINGS: Lines and Tubes: None Lungs: No focal consolidation. Pleura: No effusion or pneumothorax. Cardiomediastinal contours: Normal heart size. Redemonstrated splaying of hilar vessels. New small midline calcification appears external to the patient based on different position on 2nd view. Other: No acute osseous abnormality. IMPRESSION: 1. No acute cardiopulmonary abnormality. 2. Known mediastinal mass. Medical Decision Making Additional Infomation 54-year-old male with a history of COPD and a recently diagnosed mediastinal mass presenting once again with shortness of breath and generalized weakness. Patient had left AMA upon his last hospital admission without having a bronchoscopy done for this newly found mediastinal mass. His lab workup here today is similar to his previous admission. He has developed once again a slight kidney injury as his BUN and creatinine have elevated once again. He does not appear to be in any acute COPD exacerbation. However given his recently diagnosed mediastinal mass with a need for a bronchoscopy and biopsy for further evaluation I believe it is prudent to have him readmitted to get this done. This time the patient is amenable to admission and states that he wants to figure out what is going on. Report called to admitting hospitalist team. Departure Disposition: ADMITTED INPATIENT Admitted to Inpatient Unit: to hospitalist Impression: Primary Impression: Mediastinal mass Additional Impressions: COPD (chronic obstructive pulmonary disease) Acute renal failure Referrals: NO PRIMARY CARE PROVIDER (PCP) MURTAZA JOY MD Jun 11, 2025 21:23
[2025-06-11] MEDS: albuterol 2.5 MG/3 ML nebule NEB ONE (21:34)
[2025-06-11 21:38] LABS: MEAN PLATELET VOLUME 8.1 FL (7.4-10.4); RED CELL DISTRIBUTION WIDTH 15.1 % (11.5-14.5)
[2025-06-11 21:39] VITALS: PULSE 93; RESP 24; O2SAT 92
[2025-06-11 21:44] VITALS: PULSE 101; RESP 24; O2SAT 100
[2025-06-11] MEDS: ketorolac trometh 30MG/ML vial 30 MG/ML VIAL IV ONE (21:48)
[2025-06-11] MEDS: normal saline 1000ml 1,000 ML IV ONE (21:48)
[2025-06-11 21:54] LABS: CREATININE 1.38 MG/DL (0.60-1.10); TOTAL CARBON DIOXIDE 28.1 MMOL/L (24-32); eCRCL 71 ML/MIN; eGFR 54 ML/MIN
[2025-06-11 22:01] LABS: PRO BRAIN NATRIURETIC PEPTIDE 83 PG/ML (0-125)
--- NOTE | 2025-06-11 22:18 | RADIOLOGY REPORT ---
CHEST RADIOGRAPH Indication: SOB Technique: 1 view Comparison: CT CT CHEST ABDOMEN PELVIS on DOS: 05/31/25, CT CT CHEST on DOS: 05/31/25, DI CHEST,TWO VIE WS on DOS: 05/30/25 FINDINGS: Lines and Tubes: None Lungs: No focal consolidation. Pleura: No effusion or pneumothorax. Cardiomediastinal contours: Normal heart size. Redemonstrated splaying of hilar vessels. New small m idline calcification appears external to the patient based on different position on 2nd view. Other: No acute osseous abnormality. IMPRESSION: 1. No acute cardiopulmonary abnormality. 2. Known mediastinal mass.
[2025-06-12 03:24] LABS: ETHANOL < 10 MG/DL (<10)
[2025-06-12] MEDS ORDERED: magnesium sulf-water 2g/50mL 50 ML IV PRN (03:40)
[2025-06-12] MEDS ORDERED: ondansetron/PF 4mg/2ml inj IV PRN (03:40)
[2025-06-12] MEDS ORDERED: mag hydrox/Alum hydrox/simeth 30ml oral suspension PO PRN (03:40)
[2025-06-12] MEDS ORDERED: magnesium Cl slow-release 64mg tablet PO PRN (03:40)
[2025-06-12] MEDS ORDERED: potassium Cl 40MEQ/1/2NS 520ml 520 ML IV PRN (03:40)
[2025-06-12] MEDS ORDERED: potassium Cl 20 mEq SR tablet PO PRN ×2 (03:40)
[2025-06-12] MEDS ORDERED: magnesium hydroxide 30ml (MOM) UD suspension PO PRN (03:40)
[2025-06-12] MEDS ORDERED: magnesium sulf-water 4G/100mL 100 ML IV PRN (03:40)
[2025-06-12] MEDS: normal saline 1000ml 1,000 ML IV ONE (03:43)
[2025-06-12] MEDS: dextrose 50%-water 50ml dispensing syringe IV ONE (03:43)
--- NOTE | 2025-06-12 03:52 | HISTORY AND PHYSICAL-Residence ---
History & Physical Providers to CC Resident Creating Document: GELY AGUIRREJORDANFEI LATOSHA CC: ATA CARABALLO MD ~ History of Present Illness Primary Medical Doctor: None Reason for Admit\Complaint: ALOC History of Present Illness This is a 54-year-old with a history of bipolar disorder, schizophrenia and substance abuse who came to the ED complaining of shortness of breath. At the time of my exam, patient was extremely somnolent with slurred speech and therefore obtaining history was extremely difficult. Patient was hard to arouse, he would answer some questions and then fall back asleep. He did mention that he has been short of breath for the past 2 days as well as productive cough. He denied fevers. Of note, patient was recently admitted for aspiration pneumonia at the end of May, in addition, patient was found to have a mediastinal mass, and plan was to perform bronchoscopy. However, patient decided against the procedure and left AMA. During that admission patient completed 3 days of IV Zosyn, but given that he left AMA he did not continue antibiotic therapy. Allergies: Coded Allergies: No Known Allergies (Unverified , 05/30/25) Home Medications Home Medications Active Reported [Albuterol] 90 Mcg INH Augmentin 875/125 MG (Amoxicillin/Clavulanate Potassium) 875 Mg-125 Mg Tablet 1 Tab PO Prednisone* (Prednisone) 20 Mg Tablet 3 Tab PO DAILY [Unknown] Past Medical History Past Medical History Bipolar disorder, schizophrenia and substance abuse (obtained from prior admission) Past Surgical History Surgical History Comment Orthopedic surgery for broken femur (obtained from prior admission) Family History Family History: Patient reports no known family medical history. Past Social History Smoking: Cigarettes Alcohol Use: Alcoholic Drug Use: Methamphetamine Lives with: Other Lives In: Homeless Occupation: unemployed ROS ROS Not obtained due to altered mental status Exam Vitals: Vital Signs Date Time Temp Pulse Resp B/P (MAP) Pulse Ox O2 Delivery O2 Flow Rate FiO2 06/12/25 02:30 68 18 117/71 (86) 94 0 06/11/25 21:44 Room Air* N/A 06/11/25 20:57 98.0 General: General: Somnolent, difficult to arouse HEENT: No pallor present, no icterus, moist mucous membranes Neck: No masses and tenderness Resp: Unlabored. Scattered wheezes bilaterally. Coarse crackles likely from upper airway Chest: Prolonged expiratory phase Cardiovascular: Regular Rate and rhythm, normal S1 and S2 without murmur, rub or gallop Abdomen: Soft and nontender, no organomegaly, no guarding and rigidity, bowel sounds present Neuro: No focal weakness in the upper and lower limb muscles, power of the muscles 5/5 bilateral upper and lower extremities, normal reflexes bilaterally. Cranial nerves intact Extremities: No cyanosis,clubbing or edema Skin: Warm and Dry. No lesions Psych: Normal affect Diagnostic Data Last Recorded Lab Results: 06/11/25212606/11/252126 Advance Care Planning Advanced Care plannin - 30 Minutes Additional Plan This is a 54-year-old with a history of bipolar disorder, schizophrenia and substance abuse who came to the ED complaining of shortness of breath. Admitted for evaluation and management of altered level of consciousness. Altered level of consciousness Acute metabolic versus toxic encephalopathy Recent history of aspiration pneumonia with unfinished treatment Possible sepsis secondary to above Known history of methamphetamine abuse Likely COPD component Vitals are stable, tolerating room air White count is 13.2, however improved since last discharge Alcohol level is <10 UTox from last admission was positive for amphetamines, fentanyl and cannabinoids Chest x-ray shows no acute abnormalities with known mediastinal mass Blood cultures taken. negative so far Received 2 L of IV NS in ED. Will continue maintenance at 100 cc/hour Will start Zosyn empirically Duonebs q4 prn Incentive spirometer Aspiration precautions in place Pending CT head Pending UTox Pending urinalysis NORBERTO, likely prerenal secondary to tubular stasis Fluids as above Continue monitoring CMP Urine lytes ordered Mediastinal mass CT chest with contrast from last admission showed a large posterior mediastinal heterogeneous mass measuring about 6 by 11.2 by 11.1 cm which extends into the distal trachea and bilateral main bronchi. Dr. Wilde offered bronchoscopy on last admission, however patient decided to leave AMA Consider consulting pulmonology while in hospital versus outpatient Substance use disorder: Methamphetamine Will consult social service worker and substance abuse navigator Bipolar disorder Schizophrenia Pending medication reconciliation Code Status: Assumed full code. We will reassess once level of consciousness has improved DVT prophylaxis: Lovenox Nutrition: NPO until bedside swallow assessment PT: Ordered Prognosis: Guarded Disposition: Admit to ortho floor. Continue medical management Fei Randle MD Internal Medicine Resident PGY-2 Addendum I personally reviewed the chart, labs and imaging and reviewed the patient with the team. I agree with the assessment and plan as documented by the resident. Patient was seen through remote audio-visual assessment through HIPAA compliance setup. Date of Service: Jun 12, 2025 Billing Provider: ATA CARABALLO MD, LEONARDO LUIS Jun 12, 2025 03:52 ATA CARABALLO MD Jun 12, 2025 06:03
[2025-06-12 04:36] LABS: LEUKOCYTE ESTERASE ,URINE NEGATIVE (Neg); NITRITES, URINE NEGATIVE (Neg); OCCULT BLOOD,URINE NEGATIVE (Neg); URINE AMPHETAMINE SCREEN POSITIVE (Neg); URINE BARBITUATE SCREEN NEGATIVE (Neg); URINE BENZODIAZEPINES SCREEN NEGATIVE (Neg); URINE CANNABINOID SCREEN POSITIVE (Neg); URINE COCAINE SCREEN NEGATIVE (Neg); URINE METHADONE SCREEN NEGATIVE (Neg); URINE OPIATE SCREEN NEGATIVE (Neg); URINE PHENCYCLIDINE SCREEN NEGATIVE (Neg)
[2025-06-12 04:40] LABS: UA COLLECTION TYPE CLN CATCH MIDSTREAM
[2025-06-12] MEDS: normal saline 1000ml 1,000 ML IV SCH (04:46)
[2025-06-12 04:49] LABS: MUCUS STRANDS MODERATE /LPF (Neg); SQUAMOUS EPITHELIAL CELL,UR FEW /LPF (FEW)
--- NOTE | 2025-06-12 05:18 | ELECTROCARDIOGRAPH REPORT ---
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
[2025-06-12 05:40] VITALS: BP 124/86; PULSE 57; RESP 18; TEMP 97.7; O2SAT 94
[2025-06-12] MEDS: docusate sod 100mg capsule PO SCH (07:49)
[2025-06-12] MEDS: K and/or MAG REPLACEMENT MC SCH (08:00)
[2025-06-12 09:35] LABS: MEAN PLATELET VOLUME 9.0 FL (7.4-10.4); RED CELL DISTRIBUTION WIDTH 15.4 % (11.5-14.5)
[2025-06-12 10:00] VITALS: BP 140/93; PULSE 68; RESP 20; TEMP 98.6; O2SAT 95
[2025-06-12 10:03] LABS: CREATININE 1.14 MG/DL (0.60-1.10); TOTAL CARBON DIOXIDE 26.9 MMOL/L (24-32); eCRCL 86 ML/MIN; eGFR 67 ML/MIN
[2025-06-12 10:38] LABS: BANDS% (MANUAL) 3.0 % (0-10); EOSINOPHILS % (MANUAL) 22.0 % (0-6); LYMPHOCYTES % (MANUAL) 8.0 % (21-51); MONOCYTES % (MANUAL) 3.0 % (2-12); NEUTROPHILS % (MANUAL) 64.0 % (42-75)
[2025-06-12 10:39] LABS: PLATELET ESTIMATE NORMAL
[2025-06-12] MEDS: piperacillin/tazo 3.375gm/50ml 50 ML IV SCH (11:09)
--- NOTE | 2025-06-12 11:15 | RADIOLOGY REPORT ---
EXAM: CT CT HEAD INDICATION: ALOC; NOTABLE MASS ON VERTEX OF HEAD TECHNIQUE: CT of the head without intravenous contrast. Coronal and sagittal reformatted images are s ubmitted. Radiation Dose : 1. Head: CT Dose: CTDI volume is 58.5 mGy. Dose-length product is 100.1 mGy*cm The dose indicators for CT are the volume Computed Tomography (CT) Dose Index (CTDIvol) and the Dose Length Product (DLP), and are measured in units of mGy and mGy-cm, respectively. These indicators are not patient dose, but values generated from the CT scanner acquisition factors. The report includes radiation exposure data for exposures received during this examination. All CT scans at this medical facility are performed using dose modulation techniques as appropriate to a performed exam including the following: Automated exposure control was utilized; adjustment of the MA and/or KV according to patient size; and use of iterative reconstruction technique. COMPARISON: None FINDINGS: There is no evidence of acute intracranial hemorrhage, extra-axial collection, mass effect, midline s hift, herniation or hydrocephalus. The ventricles, sulci and cisterns are age appropriate. The woodson-white differentiation is intact. The visualized paranasal sinuses and mastoid air cells are clear. No depressed calvarial fracture. There is a circumscribed soft tissue mass along the left posterior v ertex which is partially calcified at its core. The mass measures 4.1 cm transverse by 3.3 cm AP by 2.0 cm craniocaudal. No destruction of the underlying calvarium. IMPRESSION: 1. No acute intracranial process. 2. 4.1 cm partially calcified scalp mass along the left posterior vertex. No destruction of the under lying cortical bone favoring a benign etiology. Malignant etiologies not entirely excluded. Tissue sampling is suggested for diagnostic certainty.
[2025-06-12 18:00] VITALS: BP 123/79; PULSE 67; RESP 26; TEMP 98.5; O2SAT 96
[2025-06-12 18:42] VITALS: RESP 16; O2SAT 96
[2025-06-12] MEDS: enoxaparin 40mg/0.4ml syringe SQ SCH (19:43)
[2025-06-12 21:55] VITALS: BP 140/80; PULSE 64; RESP 16; TEMP 98; O2SAT 97
[2025-06-13 04:05] LABS: CREATININE,URINE RANDOM 26.0 MG/DL; TOTAL PROTEIN,URINE RANDOM < 6.0 MG/DL; UA UREA RANDOM 352.0 MG/DL
[2025-06-13 06:00] VITALS: BP 143/86; PULSE 64; RESP 16; TEMP 97.6; O2SAT 95
[2025-06-13 06:27] LABS: MEAN PLATELET VOLUME 9.1 FL (7.4-10.4); RED CELL DISTRIBUTION WIDTH 15.4 % (11.5-14.5)
[2025-06-13 06:34] LABS: CREATININE 0.96 MG/DL (0.60-1.10); TOTAL CARBON DIOXIDE 25.3 MMOL/L (24-32); eCRCL 102 ML/MIN; eGFR 82 ML/MIN
[2025-06-13 10:00] VITALS: BP 120/75; PULSE 60; RESP 16; TEMP 97.2; O2SAT 94
[2025-06-13] MEDS ORDERED: LOSA50TA64 PO (11:35)
[2025-06-13] MEDS ORDERED: ALBU90AE INH (11:35)
[2025-06-13] MEDS ORDERED: ASPI81TA52 PO (11:35)
[2025-06-13 12:39] VITALS: BP 127/71; PULSE 62; RESP 18; O2SAT 99
[2025-06-13] MEDS ORDERED: LEVO750T68 PO (13:07)
--- NOTE | 2025-06-13 13:15 | DISCHARGE SUMMARY ---
Discharge Summary Providers to CC ~ Discharge Summary Admission Diagnosis: Sepsis Hospital Course DATE OF ADMISSION: 06/12/25 DATE OF DISCHARGE: 06/13/25 Discharge Diagnosis\\Comment: Acute toxic encephalopathy Methamphetamine abuse Prerenal NORBERTO 2/2 dehydration/vasomotor nephropathy- POA Sepsis 2/2 aspiration pneumonia, covering for Gram-positive and Gram-negative- POA Mediastinal mass Bipolar disorder Schizophrenia Operations\\Procedures: None Consultants: Program And Research Coordinator Clint Fermin Complications: None Condition on DC: Stable New Medications: Albuterol Sulfate (Proair Respiclick) 90 Mcg Aer.pow.ba 2 PUFFS INH Q4HPRN PRN for shortness of breath, #1 EA 0 Refills Aspirin (Aspirin EC) 81 Mg Tablet.dr 1 TAB PO DAILY for 30 Days, #30 TAB Losartan Potassium (Losartan Potassium) 50 Mg Tablet 50 MG PO DAILY for 90 Days, #90 TAB Continued Medications: [Albuterol] () 90 MCG INH [Unknown] () Discharge Summary: History of Present Illness From H&P: "This is a 54-year-old with a history of bipolar disorder, schizophrenia and substance abuse who came to the ED complaining of shortness of breath. At the time of my exam, patient was extremely somnolent with slurred speech and therefore obtaining history was extremely difficult. Patient was hard to arouse, he would answer some questions and then fall back asleep. He did mention that he has been short of breath for the past 2 days as well as productive cough. He denied fevers. Of note, patient was recently admitted for aspiration pneumonia at the end of May, in addition, patient was found to have a mediastinal mass, and plan was to perform bronchoscopy. However, patient decided against the procedure and left AMA. During that admission patient completed 3 days of IV Zosyn, but given that he left AMA he did not continue antibiotic therapy." Hospital Course Diagnostic findings were notable for findings of sepsis, UDS revealing positive amphetamines, findings of renal insufficiency, and chest x-ray revealing node mediastinal mass. Pertinent negative findings were head CT negative for acute abnormalities, no hypoxia, normal lactic acid, negative procal. Case was discussed with intranet specialist Dr. Cruz who agreed for outpatient follow-up for bronchoscopy. Given recent hospital stay due to aspiration pneumonia which was treated in completely, patient was started on intravenous fluids and empirical antibiotics for continued medical management of pneumonia. With the start of treatment, acute kidney injury resolving and patient fully regained level of consciousness. Patient did not experience further complications throughout the entire hospital stay and recovered earlier than expected. Patient remained on room air with oxygen saturation in 90s throughout the entire hospital stay. Patient was seen and examined on the day of discharge. All labs, diagnostic workups, discharge plan discussed with patient in details during visit before discharge. All questions and concerns answered to the best of my professional knowledge. Patient ambulates independently without needs assistance. Patient is to be discharged to [place] and to follow-up with PCP within 2 weeks. Physical Exam General: A&Ox 3, NAD HEENT: Normocephalic, PERRLA Neck: Supple, trachea midline, no JVD Chest: Clear to auscultation bilaterally Cardiovascular: RRR, S1&S2 GI: Soft and nontender Extremities: No cyanosis/clubbing/or edema EDGER OPERATOR: CN II-XII intact, no focal deficits Musculoskeletal: No paraspinal muscle tenderness, no muscle spasm Skin: Warm and intact *Problems/Diagnosis: (1) Acute renal failure Status: Acute Total Time Spent on D/C: > 30 Minutes Date of Service: Jun 13, 2025 Billing Provider: ITZEL BILLINGS Common Visit Codes: 99292-FXG/OBS DISCH DAY >30min ITZEL BILLINGS Jun 13, 2025 13:06
[2025-06-13] MEDS: levoFLOXACIN 750MG TABLET PO STA (15:09)
[2025-06-14] MEDS ORDERED: levoFLOXACIN 750MG TABLET PO SCH (11:00)
== END 2025-06-13 17:00 | disposition home or self-care (01) | DRG 720 ==
LOC: ER 20:53 → ED HOLD 06-12 03:43 → ORTHO 4S 06-12 05:15
PROVIDERS: ADMIT Internal Medicine Sleep Medicine; ATTEND Nurse Practitioner Family
DX: A41.9 Sepsis, unspecified organism (principal); J69.0 Pneumonitis due to inhalation of food and vomit; G92.9 Unspecified toxic encephalopathy; R22.2 Localized swelling, mass and lump, trunk; J44.9 Chronic obstructive pulmonary disease, unspecified; F32.A Depression, unspecified; F20.9 Schizophrenia, unspecified; F15.10 Other stimulant abuse, uncomplicated; Z79.899 Other long term (current) drug therapy
CPT/HCPCS: 36415; 70450; 71045; 80053; 80305; 80320; 81001; 82570; 83605; 83735; 83880; 84133; 84145; 84156; 84300; 84484; 84540; 85007; 85025; 87040; 87081; 87207; 93005; 94640; 94760; 96361; 96374; 97116; 97161; 97530; 99285; G0378; J1650; J1885; J2270; J2543; J3490; J7030; J7512

== ENCOUNTER 2025-06-24 18:17 | Emergency (ER) | payer MEDICAID ==
[~2025-06-24] VITALS: Ht 185.4 cm; Wt 76.4 kg
[~2025-06-24 18:17] MED LIST changes: +ALBU90AE INH; -AMOX-580 PO; +ASPI81TA52 PO; +LOSA50TA64 PO; -PRED20TA PO
--- NOTE | 2025-06-24 19:10 | ELECTROCARDIOGRAPH REPORT ---
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
[2025-06-24 19:26] LABS: MEAN PLATELET VOLUME 8.2 FL (7.4-10.4); RED CELL DISTRIBUTION WIDTH 16.0 % (11.5-14.5)
--- NOTE | 2025-06-24 19:29 | RADIOLOGY REPORT ---
CHEST RADIOGRAPH Indication: CP Technique: Single frontal view of the chest was obtained Comparison: DI CHEST,SINGLE VIEW on DOS: 06/11/25, CT CT CHEST on DOS: 05/31/25, DI CHEST,TWO VIEWS on D OS: 05/30/25 FINDINGS: Lines and Tubes: None Lungs: No focal consolidation. Soft tissue fullness of the right hilar/infrahilar region. Pleura: No effusion. No pneumothorax. Cardiomediastinal contours: Unremarkable Bones: No acute osseous abnormality. IMPRESSION: No acute cardiopulmonary disease. Relatively Unchanged mediastinal mass.
[2025-06-24 19:41] LABS: CREATININE 1.42 MG/DL (0.60-1.10); PRO BRAIN NATRIURETIC PEPTIDE 265 PG/ML (0-125); TOTAL CARBON DIOXIDE 28.6 MMOL/L (24-32); eCRCL 66 ML/MIN; eGFR 52 ML/MIN
[2025-06-24 20:54] VITALS: BP 123/76; PULSE 95; RESP 16; TEMP 99.3; O2SAT 99
--- NOTE | 2025-06-24 22:54 | Physician Documentation ---
History of Present Illness ~ Chief Complaint: Weakness Stated Complaint: FATIGUE Time Seen by MD: 22:53 OK to notify your PCP?: Yes Primary Medical Doctor: None HPI Patient presents to the emergency room for evaluation of not feeling well. He attributes this to eating a questionable egg a few days ago. Endorses cough and shortness of breath. Medication Reconciliation Allergies: Coded Allergies: No Known Allergies (Unverified , 05/30/25) Scheduled Aspirin (Aspirin EC), 1 TAB PO DAILY Losartan Potassium (Losartan Potassium), 50 MG PO DAILY Scheduled PRN Albuterol Sulfate (Proair Respiclick), 2 PUFFS INH Q4HPRN PRN for shortness of breath Miscellaneous Medications [Albuterol], 90 MCG INH, (Reported) [Unknown], (Reported) Discontinued Medications Levofloxacin (Levofloxacin), 750 MG PO DAILY Discontinued Reason: Auto Discontinued Past Medical History Past Medical History: COPD, Depression, Schizophrenia Past Surgical History: orthopedic surgeries Patient History: Patient reports no known family medical history. Alcohol Use: Alcoholic Drug Use: methamphetamine Lives with: Other Lives In: Homeless Occupation: unemployed Review of Systems ROS All review of systems negative except as per HPI Physical Exam Vital Signs: Temperature: 99.3, Source: Oral, Heart Rate: 95, Respiratory Rate: 16, BP: 123/76, Pulse Oximetry: 99, Weight: 76.360 Oxygen Flow Rate: 0 Physical Exam General: Patient is awake, alert, oriented x4 in no acute distress Head: Normocephalic and atraumatic. Eyes: Conjunctival normal. EOMI. PERRL. ENT: Mucous membranes moist. Neck: Supple, trachea is midline. Chest: Coarse breath sounds bilaterally but good air movement bilaterally. There is no accessory muscle use or retractions. Cardiac: RRR without murmurs, gallops, or rubs. Progress Results/Orders Results/Orders Orders - CYLDE PUENTE MD Chest,Single View (06/24/25 19:04) Monitor (06/24/25 18:42) Saline Lock (06/24/25 18:42) Oxygen (06/24/25 18:42) Completed Orders - CLYDE PUENTE MD Chest,Single View (06/24/25 19:04) Cbc/Diff (06/24/25 18:42) BMP (06/24/25 18:42) PBNP (06/24/25 18:42) Electrocardiogram (06/24/25 18:42) Hs Troponin I W Calculations (06/24/25 18:42) Hs Troponin I W Calculations (06/24/25 20:42) Hs Troponin I W Calculations (06/24/25 21:42) Vital Signs 06/24/25 06/24/25 18:39 20:54 Temp 97.9 99.3 Pulse 94 95 Resp 16 16 B/P (MAP) 130/78 123/76 (92) Pulse Ox 96 99 O2 Flow Rate 0 0 Laboratory Tests Test 06/24/25 19:12 06/24/25 21:25 06/24/25 22:07 White Blood Count 16.8 H Red Blood Count 4.90 Hemoglobin 13.9 L Hematocrit 41.5 L Mean Corpuscular Volume 84.7 Mean Corpuscular Hemoglobin 28.4 Mean Corpuscular Hemoglobin Concent 33.5 Red Cell Distribution Width 16.0 H Platelet Count 443 H Mean Platelet Volume 8.2 Neutrophils (%) (Auto) 71.1 Lymphocytes (%) (Auto) 10.6 L Monocytes (%) (Auto) 5.6 Eosinophils (%) (Auto) 11.8 H Basophils (%) (Auto) 0.9 Neutrophils # (Auto) 11.9 H Lymphocytes # (Auto) 1.8 Monocytes # (Auto) 0.9 Eosinophils # (Auto) 2.0 H Basophils # (Auto) 0.1 CBC Comment Sodium Level 141 Potassium Level 4.1 Chloride Level 103 Carbon Dioxide Level 28.6 Anion Gap 9 Blood Urea Nitrogen 16 Creatinine 1.42 H Estimated GFR/1.73 m2 52 BUN/Creatinine Ratio 11.3 Glucose Level 109 H Calcium Level 9.4 Troponin I High Sensitivity 5 4 4 Pro-B-Type Natriuretic Peptide 265 H Albumin 3.1 L Chemistry Comments Troponin I High Sens Percent Delta 20 20 Troponin I Hi Sens Absolute Change -1 -1 EKG/XRAY/CT/US/VASC/MRI EKG : Additional Comment EKG interpreted by myself shows time of 1909, rate 99, sinus rhythm, normal axis, no ST changes Chest X-Ray : Additional Comments Exam: CHEST,SINGLE VIEW CHEST RADIOGRAPH Indication: CP Technique: Single frontal view of the chest was obtained Comparison: DI CHEST,SINGLE VIEW on DOS: 06/11/25, CT CT CHEST on DOS: 05/31/25, DI CHEST,TWO VIEWS on DOS: 05/30/25 FINDINGS: Lines and Tubes: None Lungs: No focal consolidation. Soft tissue fullness of the right hilar/infrahilar region. Pleura: No effusion. No pneumothorax. Cardiomediastinal contours: Unremarkable Bones: No acute osseous abnormality. IMPRESSION: No acute cardiopulmonary disease. Relatively Unchanged mediastinal mass. Medical Decision Making Findings Patient presents to the emergency room with chief complaining of not feeling well as per HPI. Differentials include but are not limited to bacterial infection, viral infection, food poisoning, dehydration therefore emergent labs and chest x-ray performed which were reassuring. Patient does have leukocytosis however upon comparison to previous labs this seems to be his baseline. He had not feel additional antibiotics are warranted at this time Departure Disposition: HOME / SELF CARE / HOMELESS Impression: Primary Impression: General ill feeling Condition: Stable Discharge Instructions: Viral Illness, Adult Referrals: NO PRIMARY CARE PROVIDER (PCP) Prescriptions Famotidine (Pepcid) 20 Mg Tablet 1 TAB PO Q12H, #30 TAB 0 Refills Prov: CLYDE PUENTE MD 06/24/25 Signature Scribe Signature: No scribe Attestation: The note accurately reflects work and decisions made by me.Clyde Puente MD 06/24/25 23:01 CLYDE PUENTE MD Jun 24, 2025 22:54
[2025-06-24] MEDS ORDERED: FAMO-128 PO (23:01)
[2025-06-24] MEDS: pantoprazole 40mg Tablet.DR PO ONE (23:09)
[2025-06-24] MEDS: mag hydrox/Alum hydrox/simeth 30ml oral suspension PO ONE (23:09)
== END 2025-06-24 23:23 | disposition home or self-care (01) ==
LOC: ER 18:18
DX: R05.9 Cough, unspecified (principal); R06.02 Shortness of breath; J44.9 Chronic obstructive pulmonary disease, unspecified; F20.9 Schizophrenia, unspecified; F32.A Depression, unspecified; F15.90 Other stimulant use, unspecified, uncomplicated; F10.90 Alcohol use, unspecified, uncomplicated; Z56.0 Unemployment, unspecified; Z59.00 Homelessness unspecified; Z79.82 Long term (current) use of aspirin; Z79.899 Other long term (current) drug therapy; Y90.9 Presence of alcohol in blood, level not specified
CPT/HCPCS: 36415; 71045; 80048; 83880; 84484; 85025; 93005; 99285

== ENCOUNTER 2025-07-02 13:11 | Inpatient (IN) | payer MEDICAID ==
[~2025-07-02] VITALS: Ht 185.4 cm; Wt 72.5 kg
[~2025-07-02 13:11] MED LIST changes: +FAMO-128 PO
[2025-07-02 14:14] LABS: MEAN PLATELET VOLUME 8.5 FL (7.4-10.4); RED CELL DISTRIBUTION WIDTH 16.3 % (11.5-14.5)
--- NOTE | 2025-07-02 14:17 | RADIOLOGY REPORT ---
CHEST RADIOGRAPH Indication: RECENT PNA DX Technique: Frontal and lateral view of the chest was obtained Comparison: DI CHEST,SINGLE VIEW on DOS: 06/24/25, DI CHEST,SINGLE VIEW on DOS: 06/11/25, CT CT CHEST on DOS: 05/31/25, DI CHEST,TWO VIEWS on DOS: 05/30/25 FINDINGS: Lines and Tubes: None Lungs: Clear Pleura: No effusion. No pneumothorax. 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 Bones: Unremarkable IMPRESSION: No pneumonia.
[2025-07-02 14:32] LABS: CREATININE 1.45 MG/DL (0.60-1.10); PRO BRAIN NATRIURETIC PEPTIDE 143 PG/ML (0-125); TOTAL CARBON DIOXIDE 28.6 MMOL/L (24-32); eCRCL 61 ML/MIN; eGFR 51 ML/MIN
[2025-07-02] MEDS: ipratropium/albuterol 3ml nebule NEB ONE (14:55)
[2025-07-02 14:57] VITALS: PULSE 84; RESP 16; O2SAT 95
[2025-07-02] MEDS: normal saline 1000ML IV soln IVB ONE (14:57)
[2025-07-02 14:58] LABS: BANDS% (MANUAL) 12.0 % (0-10); EOSINOPHILS % (MANUAL) 15.0 % (0-6); LYMPHOCYTES % (MANUAL) 9.0 % (21-51); MONOCYTES % (MANUAL) 4.0 % (2-12); NEUTROPHILS % (MANUAL) 60.0 % (42-75); PLATELET ESTIMATE NORMAL
[2025-07-02 15:03] VITALS: PULSE 78; RESP 16; O2SAT 95
--- NOTE | 2025-07-02 15:08 | Physician Documentation ---
History of Present Illness ~ Chief Complaint: Cold, cough & congestion Stated Complaint: SORE THROAT Time Seen by MD: 14:13 Primary Medical Doctor: None Mode of Arrival: Ambulatory HPI 54-year-old male presents to the ED with a report reported illness which is lasts of the over a week. He states I have not eaten anything in six days. He denies any nausea vomiting or diarrhea reports severe cough shortness of breath denies any fevers. Does have a history of COPD. Patient is homeless reports a general malaise and weakness Day of Onset: Jul 02, 2025 Medication Reconciliation Allergies: Coded Allergies: No Known Allergies (Unverified , 07/02/25) Miscellaneous Medications Home Med List (No Home Medications), (Reported) Discontinued Medications Albuterol Sulfate (Proair Respiclick), 2 PUFFS INH Q4HPRN PRN for shortness of breath Discontinued Reason: Other Albuterol Sulfate (Proair Respiclick), 2 PUFFS INH Q4HPRN PRN for shortness of breath, (Reported) Discontinued Reason: completed med therapy Aspirin (Aspirin EC), 1 TAB PO DAILY Discontinued Reason: Other Aspirin (Aspir 81), 1 TAB PO DAILY, (Reported) Discontinued Reason: completed med therapy Famotidine (Pepcid), 1 TAB PO Q12H Discontinued Reason: Out of medication Losartan Potassium (Losartan Potassium), 50 MG PO DAILY Discontinued Reason: Other Losartan Potassium (Losartan Potassium), 1 TAB PO DAILY, (Reported) Discontinued Reason: completed med therapy [Albuterol], 90 MCG INH, (Reported) Discontinued Reason: Other [Unknown], (Reported) Discontinued Reason: Other Past Medical History Past Medical History: COPD, Depression, Schizophrenia Past Surgical History: orthopedic surgeries Patient History: Patient reports no known family medical history. Alcohol Use: Alcoholic Drug Use: methamphetamine Lives with: Other Lives In: Homeless Occupation: unemployed Review of Systems All Other Systems at this time: Reviewed and Negative ROS As stated above in the HPI, otherwise all systems are reviewed and negative. Physical Exam Vital Signs: Temperature: 98.2, Source: Temporal, Heart Rate: 78, Respiratory Rate: 16, BP: 109/71, Pulse Oximetry: 95, Weight: 72.500 Oxygen Flow Rate: 0 Physical Exam General: Alert, no apparent distress. Respiratory: Coarse lung sounds bilaterall Chest: No accessory muscle use. Cardiovascular: Regular rate and rhythm, no murmurs. Extremities: Normal range of motion, no deformity. Neurologic: Oriented x4. Psychiatric: Normal mood and affect. Skin: Normal color, warm and dry. No edema, no ecchymosis. Progress Results/Orders Results/Orders Orders - GERMÁN CHENG GREENSKEEPER Svn Treatment (07/02/25 14:42) Ct Chest (07/02/25 14:47) Page Hospitalist (07/02/25 ) Ceftriaxone 2gm/D5w 50ml Bag (Rocephin 2 (07/02/25 16:40) Nursing Swallow Screen (07/02/25 16:59) Completed Orders - GERMÁN CHENG GREENSKEEPER Normal Saline 1000ml (0.9% Sodium Chlori (07/02/25 14:45) Ipratropium/Albuterol Nebule (Ipratrop/A (07/02/25 14:45) Ct Chest (07/02/25 14:47) Methylprednisolone Sod Succ (Solumedrol (07/02/25 14:50) Iohexol 300mg/Ml 100ml Inj. (Omnipaque-3 (07/02/25 15:37) Medications Received in ER Medications (Trade) Dose Ordered Sig/Eugenie Route PRN Reason Start Time Stop Time Status Last Admin Dose Admin Ceftriaxone Sodium/Dextrose 50 ml @ 100 mls/hr NOW IV 07/02/25 16:40 07/02/25 23:59 07/02/25 17:25 100 MLS/HR (Dilaudid inj.) 0.5 mg Q4H PRN IV SEVERE PAIN 7-10 07/02/25 17:35 07/02/25 22:08 0.5 MG Sodium Chloride 1,000 ml @ 100 mls/hr Q10H IV 07/02/25 17:35 07/02/25 18:29 100 MLS/HR Vital Signs 07/02/25 07/02/25 07/02/25 07/02/25 13:28 13:53 14:28 14:57 Temp 98.2 Pulse 95 62 84 Resp 12 16 16 B/P (MAP) 100/67 109/71 (84) Pulse Ox 95 95 95 O2 Delivery Room Air* O2 Flow Rate 0 0 0 FiO2 21 07/02/25 07/02/25 07/02/25 07/02/25 15:03 15:30 16:30 17:30 Pulse 78 75 76 71 Resp 16 18 18 16 B/P (MAP) 115/70 (85) 125/77 (93) 108/68 (81) Pulse Ox 95 97 97 99 O2 Delivery Room Air* O2 Flow Rate 0 0 0 0 FiO2 21 Laboratory Tests Test 07/02/25 12:35 07/02/25 13:54 07/02/25 16:00 SARS-CoV-2 Antigen (Rapid) Negative White Blood Count 19.0 H Red Blood Count 4.72 Hemoglobin 13.3 L Hematocrit 39.9 L Mean Corpuscular Volume 84.5 Mean Corpuscular Hemoglobin 28.2 Mean Corpuscular Hemoglobin Concent 33.4 Red Cell Distribution Width 16.3 H Platelet Count 421 Mean Platelet Volume 8.5 Neutrophils (%) (Auto) 72.2 Lymphocytes (%) (Auto) 8.2 L Monocytes (%) (Auto) 6.3 Eosinophils (%) (Auto) 12.5 H Basophils (%) (Auto) 0.8 Neutrophils # (Auto) 13.7 H Lymphocytes # (Auto) 1.6 Monocytes # (Auto) 1.2 H Eosinophils # (Auto) 2.4 H Basophils # (Auto) 0.1 CBC Comment Differential Total Cells Counted 100 Neutrophils % (Manual) 60.0 Band Neutrophils % 12.0 H Lymphocytes % (Manual) 9.0 L Monocytes % (Manual) 4.0 Eosinophils % (Manual) 15.0 H Platelet Estimate Normal Red Blood Cell Morphology Perf Basophilic Stippling Anisocytosis 1+ Sodium Level 135 Potassium Level 3.6 Chloride Level 97 L Carbon Dioxide Level 28.6 Anion Gap 9 Blood Urea Nitrogen 16 Creatinine 1.45 H Estimated GFR/1.73 m2 51 BUN/Creatinine Ratio 11.0 Glucose Level 153 H Lactic Acid Level 3.1 H 1.8 Calcium Level 9.2 Pro-B-Type Natriuretic Peptide 143 H Albumin 3.0 L Chemistry Comments Microbiology Date/Time Source Procedure Growth Status 07/02/25 13:55 Blood Arm Right Blood Culture - Preliminary NEGATIVE (LESS THAN 24 HOURS) Resulted Medical Decision Making Findings Patient's CT came back with multiple findings including a mass. Based on patient's difficulty swallowing he was reported to require a bronchoscopy however he did not follow up with the getting this done. Currently suspecting developing infection based on a grossly elevated white count and lactic acid even though some of the lactic acid resolved after hydration. Requesting hospital evaluation by the Internal Medicine staff Differential Dx:Considerations: Include: Allergic rhinitis, Influenza, Otitis media, Peritonsillar abscess, Pharyngitis-Diphtheria, Pharyngitis-Streptoccal, Pharyngitis-Viral, Pneumonia, Pnuemonitis, Sinusitis, URI, Other Departure Disposition: ADMITTED INPATIENT Impression: Primary Impression: Methamphetamine abuse Additional Impressions: Acute renal failure Mediastinal mass General ill feeling Condition: Stable Referrals: NO PRIMARY CARE PROVIDER (PCP) Signature Scribe Signature: h Attestation: Scribed for Germán Cheng Shake Out Worker by Germán Marion NP . 07/02/25 22:51 GERMÁN CHENG GREENSKEEPER Jul 02, 2025 15:07
[2025-07-02] MEDS ORDERED: iohexol 300mg/ml 100ml inj. ONE (15:37)
--- NOTE | 2025-07-02 16:07 | RADIOLOGY REPORT ---
EXAM: CT CT CHEST W/ IV CONTRAST History: cough Comparison Study: CT CT CHEST on DOS: 05/31/25 TECHNIQUE: A digital pickling machine operator image was obtained. During the uneventful, intravenous administration of c ontrast material, multislice data acquisition was obtained through the chest. The data set was subseq uently reconstructed into axial, coronal, and sagittal images. Radiation Dose : CTDI vol 10.55 mGy, DLP 830.84 mGy*cm. Findings: Lungs: Medial right lower lobe ground-glass opacification. Pleura: Unremarkable Heart/Great vessels: No cardiomegaly or pericardial effusion. Mediastinum: 5.6 x 9.5 cm mid esophageal mass. Debris in the esophagus just superior to the mass. Enl arged bilateral hilar and mediastinal lymph nodes. Soft tissues/Bones: Mild multilevel degenerative changes of the thoracic spine. Possible enlarged gastroesophageal lymph nodes. Impression: 1. 5.6 x 9.5 cm mid esophageal mass with enlarged hilar and mediastinal lymph nodes concerning for me tastatic disease. 2. Possible enlarged gastroesophageal lymph nodes, nonspecific. May also reflect metastases. 3. Medial right lower lobe ground-glass opacification, nonspecific. Cannot exclude aspiration given debris within the esophagus.
[2025-07-02] MEDS: CefTRIAXone 2gm/D5W 50ml BAG 50 ML IV SCH (17:25)
[2025-07-02] MEDS ORDERED: ondansetron/PF 4mg/2ml inj IV PRN (17:35)
[2025-07-02] MEDS ORDERED: magnesium sulf-water 4G/100mL 100 ML IV PRN (17:35)
[2025-07-02] MEDS ORDERED: HYDROmorphone/PF 0.2 MG/ML SYRINGE IV PRN (17:35)
[2025-07-02] MEDS ORDERED: potassium Cl 20 mEq SR tablet PO PRN ×2 (17:35)
[2025-07-02] MEDS ORDERED: magnesium sulf-water 2g/50mL 50 ML IV PRN (17:35)
[2025-07-02] MEDS ORDERED: magnesium hydroxide 30ml (MOM) UD suspension PO PRN (17:35)
[2025-07-02] MEDS ORDERED: potassium Cl 40MEQ/1/2NS 520ml 520 ML IV PRN (17:35)
[2025-07-02] MEDS ORDERED: albuterol 2.5 MG/3 ML nebule NEB PRN (18:00)
[2025-07-02] MEDS ORDERED: ALBU90AE INH (18:04)
[2025-07-02] MEDS ORDERED: ASPI-611 PO (18:04)
[2025-07-02] MEDS ORDERED: LOSA50TA64 PO (18:04)
--- NOTE | 2025-07-02 18:05 | HISTORY AND PHYSICAL ---
History & Physical Providers to CC ~ History of Present Illness Reason for Admit\Complaint: Aspiration pneumonia\dysphagia with a large esophageal mass History of Present Illness This is a 54-year-old male who presents to ED with feeling sick for some time however over the past week the patient has had worsening in his p.o. intake having difficulty swallowing liquids and solids he also has had a cough and shortness of the breath for one-week duration the patient does have laryngitis as well. Presents to ED [place] [address] which is up trending and of 1.45 which is the highest creatinine we have on record. A CTA of the chest demonstrates a 5.6 x 9.5 cm mid esophageal mass with enlarged hilar and mediastinal lymph node. The patient is scheduled for outpatient bronchoscopy however the patient did not keep his appointment. The patient had an EGD with biopsy of the stomach which was negative for cancer Allergies: Coded Allergies: No Known Allergies (Unverified , 07/02/25) Home Medications Home Medications Active Aspirin EC (Aspirin) 81 Mg Tablet.dr 1 Tab PO DAILY 30 Days Proair Respiclick (Albuterol Sulfate) 90 Mcg Aer.pow.ba 2 Puffs INH Q4HPRN PRN Losartan Potassium 50 Mg Tablet 50 Mg PO DAILY 90 Days Past Medical History Past Medical History Esophageal mass, COPD, depression, schizophrenia Past Surgical History Surgical History Comment Left femur ORIF Family History Family History: FH: myocardial infarction Maternal grandmother Past Social History Social History Comment Smokes half a pack of cigarettes a day, denies alcohol use, smokes methamphetamines last usage one day ago, fentanyl inhalation and has used IV. Full code status ROS ROS Except for positives in the HPI the rest of the 14 point review systems is negative Exam Vitals: Vital Signs Date Time Temp Pulse Resp B/P (MAP) Pulse Ox O2 Delivery O2 Flow Rate FiO2 07/02/25 17:30 71 16 108/68 (81) 99 0 07/02/25 15:03 Room Air* 21 07/02/25 13:28 98.2 General: Gen. No acute distress alert and oriented 4, hoarse voice Lungs coarse breath sounds in all listening valente bilaterally, no wheezes rales or rhonchi appreciated Heart normal sinus rhythm no murmurs rubs or clicks noted Abdomen soft nontender bowel sounds are normoactive Lower extremities no clubbing cyanosis, nor edema appreciated bilaterally Diagnostic Data Last Recorded Lab Results: 07/02/25 1354 07/02/25 1354 Advance Care Planning Advanced Care plannin - 30 Minutes Problems: (1) Pneumonia Status: Acute Additional Plan # respiratory distress # acute exacerbation of chronic COPD # aspiration pneumonia Nebulizer treatments with scheduled DuoNeb and PRN albuterol nebs and scheduled budesonide neb IV Zosyn Blood cultures # dysphagia # esophageal mass Status post EGD with biopsy of the stomach that was negative Scheduled for bronchoscopy the patient did not keep his appointment We will need to reschedule with a bronchoscopy Bedside swallow evaluation # methamphetamine use disorder # fentanyl use disorder Substance use navigator Karen Rizvi consult is ordered # NORBERTO possibly secondary to renal tubular stasis IV fluid resuscitation Monitor daily CMP # DVT prophylaxis SQ Lovenox SCDs I spent a total of 20 minutes on reviewing various resuscitative measures/ ACP with the patient at the time of admission. The patient has decided on full code status. Date of Service: Jul 02, 2025 Billing Provider: SILVIA PATEL DO Common Visit Codes: [id number] INP/OBS CARE (HIGH) Secondary Visit Codes: [id number] CARE PLAN 30 MINUTES SILVIA PATEL DO Jul 02, 2025 18:05
[2025-07-02] MEDS: normal saline 1000ml 1,000 ML IV SCH (18:29)
[2025-07-02] MEDS: nicotine 14mg patch - 24hr TD ONE (18:30)
[2025-07-02] MEDS ORDERED: NO HOME MEDS (19:21)
[2025-07-02] MEDS: budesonide 0.5mg/2ml UD nebule IH SCH (19:36)
[2025-07-02] MEDS: ipratropium/albuterol 3ml nebule NEB SCH (19:36)
[2025-07-02 19:37] VITALS: PULSE 86; RESP 18; O2SAT 98
[2025-07-02 19:45] VITALS: PULSE 79; RESP 18
[2025-07-02] MEDS: K and/or MAG REPLACEMENT MC SCH (20:00)
[2025-07-02 20:03] VITALS: BP 124/70; PULSE 73; RESP 19; TEMP 98.3; O2SAT 99
[2025-07-02] MEDS: docusate sod 100mg capsule PO SCH (22:07)
[2025-07-02] MEDS: methylPREDNISolone sod succ/PF 40mg inj. IV SCH (22:07)
[2025-07-02] MEDS: enoxaparin 30mg/0.3ml syringe SQ SCH (22:08)
[2025-07-02] MEDS: HYDROmorphone inj. 0.5 MG/0.5 ML DISP.SYRIN IV PRN (22:08)
[2025-07-03] VITALS (20 sets, daily range): BP systolic 101–129; BP diastolic 64–70; PULSE 63–108; RESP 15–22; TEMP 97.1–98.6; O2SAT 93–99
[2025-07-03] MEDS: piperacillin/tazo 3.375gm/50ml 50 ML IV SCH (00:34)
[2025-07-03 04:28] LABS: MEAN PLATELET VOLUME 8.0 FL (7.4-10.4); RED CELL DISTRIBUTION WIDTH 15.7 % (11.5-14.5)
[2025-07-03 04:47] LABS: CREATININE 1.01 MG/DL (0.60-1.10); TOTAL CARBON DIOXIDE 26.6 MMOL/L (24-32); eCRCL 88 ML/MIN; eGFR 78 ML/MIN
[2025-07-03] MEDS: nicotine 21mg patch - 24 hr TD ONE (17:11)
--- NOTE | 2025-07-03 19:43 | PROGRESS NOTE ---
Daily Progress Note Providers to CC ~ Antibiotic Timeout Antibiotic Ordered?: Yes Subjective The patient had a bedside swallow evaluation with speech therapy today and recommended pureed diet and normal liquids. The patient is white blood cell count has normalized Objective Vital Signs Date Time Temp Pulse Resp B/P (MAP) Pulse Ox O2 Delivery O2 Flow Rate FiO2 07/03/25 17:32 18 07/03/25 16:44 84 Room Air 0.0 21 07/03/25 16:35 97 07/03/25 10:00 98.1 107/64 (78) Result Diagram: 07/03/25 0420 07/03/25419 Gen. No acute distress alert and oriented 4, significantly hoarse voice Lungs clear to ascultation bilaterally, no wheezes rales or rhonchi appreciated Heart normal sinus rhythm no murmurs rubs or clicks noted Abdomen soft nontender bowel sounds are normoactive Lower extremities no clubbing cyanosis, nor edema appreciated bilaterally Problem\Assessment\Plan Problems/Diagnosis: (1) Pneumonia # respiratory distress # acute exacerbation of chronic COPD # aspiration pneumonia Nebulizer treatments with scheduled DuoNeb and PRN albuterol nebs and scheduled budesonide neb IV Zosyn Blood cultures are negative x1 day -07/03 improving # dysphagia # esophageal mass Status post EGD with biopsy of the stomach that was negative Scheduled for bronchoscopy the patient did not keep his appointment the patient will need to reschedule with a bronchoscopy Bedside swallow evaluation with speech therapy recommended pureed diet and thin liquids # methamphetamine use disorder # fentanyl use disorder Substance use navigator Karen Rizvi consult is ordered # NORBERTO possibly secondary to renal tubular stasis IV fluid resuscitation Monitor daily CMP Significantly improved # DVT prophylaxis SQ Lovenox SCDs Date of Service: Jul 03, 2025 Billing Provider: SILVIA PATEL DO Common Visit Codes: [id number] INP/OBS CARE(HIGH) SILVIA PATEL DO Jul 03, 2025 19:43
[2025-07-04] VITALS (16 sets, daily range): BP systolic 104–136; BP diastolic 64–77; PULSE 74–102; RESP 16–18; TEMP 98.1–98.6; O2SAT 94–99
[2025-07-04 05:34] LABS: MEAN PLATELET VOLUME 9.1 FL (7.4-10.4); RED CELL DISTRIBUTION WIDTH 16.0 % (11.5-14.5)
[2025-07-04 06:08] LABS: CREATININE 1.02 MG/DL (0.60-1.10); TOTAL CARBON DIOXIDE 26.7 MMOL/L (24-32); eCRCL 87 ML/MIN; eGFR 77 ML/MIN
[2025-07-04 06:30] LABS: BANDS% (MANUAL) 18.0 % (0-10); LYMPHOCYTES % (MANUAL) 2.0 % (21-51); MONOCYTES % (MANUAL) 6.0 % (2-12); NEUTROPHILS % (MANUAL) 74.0 % (42-75); PLATELET ESTIMATE NORMAL
[2025-07-04] MEDS: nicotine 21mg patch - 24 hr TD SCH (08:06)
--- NOTE | 2025-07-04 20:34 | PROGRESS NOTE ---
Daily Progress Note Providers to CC ~ Antibiotic Timeout Antibiotic Ordered?: Yes Subjective The patient is white blood cell count did up trend today possibly secondary to I V glucocorticoid steroids. The patient will have to contact The personally [facility] office with records to get a appointment for bronchoscopy I did send information to mannequin maker Dr. Wilde for possible inpatient bronchoscopy. Objective Vital Signs Date Time Temp Pulse Resp B/P (MAP) Pulse Ox O2 Delivery O2 Flow Rate FiO2 07/04/25 20:15 100 18 Room Air 0.0 21 07/04/25 20:01 97 07/04/25 18:00 98.2 136/77 (96) Result Diagram: 07/04/25 0412 07/04/25 0412 Gen. No acute distress alert and oriented 4, significantly hoarse voice Lungs clear to ascultation bilaterally, no wheezes rales or rhonchi appreciated Heart normal sinus rhythm no murmurs rubs or clicks noted Abdomen soft nontender bowel sounds are normoactive Lower extremities no clubbing cyanosis, nor edema appreciated bilaterally Problem\Assessment\Plan Problems/Diagnosis: (1) Pneumonia # respiratory distress # acute exacerbation of chronic COPD # aspiration pneumonia Nebulizer treatments with scheduled DuoNeb and PRN albuterol nebs and scheduled budesonide neb IV Zosyn Blood cultures are negative x1 day -07/03 improving -07/04 white blood cell count up trended however the patient is otherwise stable continue IV antibiotics and steroids # dysphagia # esophageal mass Status post EGD with biopsy of the stomach that was negative Scheduled for bronchoscopy the patient did not keep his appointment the patient will need to reschedule with a bronchoscopy Bedside swallow evaluation with speech therapy recommended pureed diet and thin liquid 07/04 the staff reached out to Dr. Cruz a desk maker's office and since the patient missed his bronchoscopy he will have to bring in records and requests bronchoscopy with the office. I did reach out and sent a text message to Dr. Wilde for inpatient bronchoscopy I have not heard back I will call Dr. Melissa # methamphetamine use disorder # fentanyl use disorder Substance use navigator Karen Rizvi consult is ordered # NORBERTO possibly secondary to renal tubular stasis IV fluid resuscitation Monitor daily CMP Significantly improved # DVT prophylaxis SQ Lovenox SCDs Date of Service: Jul 04, 2025 Billing Provider: ROBACK,SILVIA T DO Common Visit Codes: [id number] INP/OBS CARE(HIGH) SILVIA PATEL DO Jul 04, 2025 20:34
[2025-07-05] VITALS (16 sets, daily range): BP systolic 107–142; BP diastolic 51–84; PULSE 64–78; RESP 16–20; TEMP 97.5–97.8; O2SAT 93–97
[2025-07-05 05:49] LABS: RED CELL DISTRIBUTION WIDTH 16.8 % (11.5-14.5)
[2025-07-05 05:52] LABS: MEAN PLATELET VOLUME 9.1 FL (7.4-10.4)
[2025-07-05 06:14] LABS: CREATININE 0.87 MG/DL (0.60-1.10); TOTAL CARBON DIOXIDE 28.4 MMOL/L (24-32); eCRCL 102 ML/MIN; eGFR > 90 ML/MIN
--- NOTE | 2025-07-05 17:41 | PROGRESS NOTE ---
Daily Progress Note Providers to CC ~ Antibiotic Timeout Antibiotic Ordered?: Yes Subjective The patient is white blood cell count is downtrending and the patient feels better is tolerating a pureed diet. I discussed the case with cytogenetics laboratory manager who has a arranged with assistance of Dr. Cruz for a EBUS bronchoscopy on MondayJuly 07. Objective Vital Signs Date Time Temp Pulse Resp B/P (MAP) Pulse Ox O2 Delivery O2 Flow Rate FiO2 07/05/25 15:29 72 20 Room Air 21 07/05/25 15:24 97 0 07/04/25 22:00 98.2 108/65 (79) Result Diagram: 07/05/25 0444 07/05/25 0444 Gen. No acute distress alert and oriented 4, significantly hoarse voice Lungs clear to ascultation bilaterally, no wheezes rales or rhonchi appreciated Heart normal sinus rhythm no murmurs rubs or clicks noted Abdomen soft nontender bowel sounds are normoactive Lower extremities no clubbing cyanosis, nor edema appreciated bilaterally Problem\Assessment\Plan Problems/Diagnosis: (1) Pneumonia # respiratory distress # acute exacerbation of chronic COPD # aspiration pneumonia Nebulizer treatments with scheduled DuoNeb and PRN albuterol nebs and scheduled budesonide neb IV Zosyn Blood cultures are negative x1 day -07/03 improving -07/04 white blood cell count up trended however the patient is otherwise stable continue IV antibiotics and steroids -07/05 white blood cell count is downtrending and the patient feels better # dysphagia # esophageal mass Status post EGD with biopsy of the stomach that was negative Scheduled for bronchoscopy the patient did not keep his appointment the patient will need to reschedule with a bronchoscopy Bedside swallow evaluation with speech therapy recommended pureed diet and thin liquid 07/04 the staff reached out to Dr. Cruz a cytogenetics laboratory manager's office and since the patient missed his bronchoscopy he will have to bring in records and requests bronchoscopy with the office. I did reach out and sent a text message to Dr. Wilde for inpatient bronchoscopy I have not heard back I will call Dr. Wilde tomorrow 07/05 I discussed the case with cytogenetics laboratory manager who has a arranged with assistance of Dr. Cruz for a EBUS bronchoscopy on MondayJuly 07. # methamphetamine use disorder # fentanyl use disorder Substance use navigator Karen Rizvi consult is ordered # NORBERTO possibly secondary to renal tubular stasis IV fluid resuscitation Monitor daily CMP Significantly improved # DVT prophylaxis SQ Lovenox SCDs Date of Service: Jul 05, 2025 Billing Provider: SILVIA PATEL DO Common Visit Codes: [id number] INP/OBS CARE(HIGH) SILVIA PATEL DO Jul 05, 2025 17:41
[2025-07-05] MEDS: mag hydrox/Alum hydrox/simeth 30ml oral suspension PO PRN (19:35)
[2025-07-06] VITALS (14 sets, daily range): BP systolic 123–159; BP diastolic 76–96; PULSE 65–93; RESP 15–20; TEMP 97.1–99.2; O2SAT 93–98
[2025-07-06 06:17] LABS: MEAN PLATELET VOLUME 9.3 FL (7.4-10.4); RED CELL DISTRIBUTION WIDTH 16.5 % (11.5-14.5)
[2025-07-06 06:30] LABS: CREATININE 1.02 MG/DL (0.60-1.10); TOTAL CARBON DIOXIDE 29.8 MMOL/L (24-32); eCRCL 87 ML/MIN; eGFR 77 ML/MIN
--- NOTE | 2025-07-06 18:23 | PROGRESS NOTE ---
Daily Progress Note Providers to CC ~ Antibiotic Timeout Antibiotic Ordered?: Yes Subjective The patient is white blood cell count continues to downtrend the patient is feeling better as well he is requesting an Pneumovax. The patient will be NPO after midnight for bronchoscopy scheduled for 10:00 a.m. Objective Vital Signs Date Time Temp Pulse Resp B/P (MAP) Pulse Ox O2 Delivery O2 Flow Rate FiO2 07/06/25 11:42 78 20 Room Air 0.0 21 07/06/25 11:34 93 07/06/25 11:00 97.1 135/78 (97) Result Diagram: 07/06/2541507/06/25415 Gen. No acute distress alert and oriented 4, significantly hoarse voice Lungs clear to ascultation bilaterally, no wheezes rales or rhonchi appreciated Heart normal sinus rhythm no murmurs rubs or clicks noted Abdomen soft nontender bowel sounds are normoactive Lower extremities no clubbing cyanosis, nor edema appreciated bilaterally Problem\Assessment\Plan Problems/Diagnosis: (1) Pneumonia # respiratory distress # acute exacerbation of chronic COPD # aspiration pneumonia Nebulizer treatments with scheduled DuoNeb and PRN albuterol nebs and scheduled budesonide neb IV Zosyn Blood cultures are negative x1 day -07/03 improving -07/04 white blood cell count up trended however the patient is otherwise stable continue IV antibiotics and steroids -07/05 white blood cell count is downtrending and the patient feels better # dysphagia # esophageal mass Status post EGD with biopsy of the stomach that was negative Scheduled for bronchoscopy the patient did not keep his appointment the patient will need to reschedule with a bronchoscopy Bedside swallow evaluation with speech therapy recommended pureed diet and thin liquid 07/04 the staff reached out to Dr. Cruz a freight loading supervisor's office and since the patient missed his bronchoscopy he will have to bring in records and requests bronchoscopy with the office. I did reach out and sent a text message to Dr. Wilde for inpatient bronchoscopy I have not heard back I will call Dr. Wilde tomorrow 07/05 I discussed the case with freight loading supervisor who has a arranged with assistance of Dr. Cruz for a EBUS bronchoscopy on MondayJuly 07. 07/06 I received confirmation by respiratory therapist Mamta that the patient is scheduled for bronchoscopy at 10 tomorrow morning and just received a phone call from to make sure the patient is NPO after midnight for which the orders placed. # methamphetamine use disorder # fentanyl use disorder Substance use navigator Karen Rizvi consult is ordered # NORBERTO possibly secondary to renal tubular stasis IV fluid resuscitation Monitor daily CMP Significantly improved # DVT prophylaxis SQ Lovenox SCDs Date of Service: Jul 06, 2025 Billing Provider: SILVIA PATEL DO Common Visit Codes: [id number] INP/OBS CARE(HIGH) SILVIA PATEL DO Jul 06, 2025 18:23
[2025-07-07] VITALS (51 sets, daily range): BP systolic 130–166; BP diastolic 80–99; PULSE 63–89; RESP 15–28; TEMP 97.4–98.9; O2SAT 91–99
[2025-07-07 05:53] LABS: RED CELL DISTRIBUTION WIDTH 16.4 % (11.5-14.5)
[2025-07-07 05:56] LABS: MEAN PLATELET VOLUME 8.5 FL (7.4-10.4)
[2025-07-07 06:13] LABS: CREATININE 0.96 MG/DL (0.60-1.10); TOTAL CARBON DIOXIDE 31.2 MMOL/L (24-32); eCRCL 92 ML/MIN; eGFR 82 ML/MIN
[2025-07-07] MEDS: lidocaine 2% viscous 15 ML cup ***bronch room only MM ONE (08:08)
[2025-07-07] MEDS: LIDOCAINE 4% (40MG/ML) topical solution 50ml **BRONCH ONLY ONE (08:08)
[2025-07-07] MEDS: epiNEPHrine 1 MG/ML 1 ml ampule **BRONCH ONLY ONE (08:08)
[2025-07-07] MEDS: phenylephrine 1% Nasal spray (extra-strength) 15 ML bottle **bronch room NS ONE (08:14)
[2025-07-07] MEDS: LIDOcaine 2% Viscous 15ml cup TP ONE (09:25)
[2025-07-07] MEDS ORDERED: fentaNYL/PF 50MCG/1 ML 2ML syringe IV PRN (09:25)
[2025-07-07] MEDS ORDERED: MIDAZolam 1 MG/ML 5ML VIAL IV PRN (09:25)
[2025-07-07] MEDS: phenylephrine 1% (X-tra strg) 15ml nasal spray NS ONE (09:25)
[2025-07-07] MEDS: normal saline 1000ml 500 ML IV SCH (09:25)
--- NOTE | 2025-07-07 09:50 | CONSULTATION REPORT ---
Consult Providers to CC ~ History of Present Illness Reason for Admit\Complaint: Mediastinal mass. History of Present Illness 54-year-old male who is homeless who presented to the emergency room at [facility] with a chief complaint of dyspnea and a cough that it lasted for about a week. The patient also reports malaise and generalized weakness. He has not had any chest pain.He is not reporting any weight loss and reports that his appetite has been normal although at admission he reported not having eaten adequately for about a week. The patient was evaluated with a CAT scan of the chest that revealed extensive mediastinal lymphadenopathy highly suggestive of a neoplastic process. We were thus consulted to see the patient and scheduled for bronchoscopy if needed. The patient was recently hospitalized at [facility] and had an upper GI endoscopy with a biopsy. His case was also discussed between the O hospitalist Saúl Leigh and Dr. Cruz and plans were undertaken to schedule an outpatient bronchoscopy but the patient did not show up. Allergies: Coded Allergies: No Known Allergies (Unverified , 07/02/25) Home Medications Home Medications Active Reported No Home Medications (Home Med List) Each Family History Family History: FH: myocardial infarction Maternal grandmother Exam Vitals: Vital Signs Date Time Temp Pulse Resp B/P (MAP) Pulse Ox O2 Delivery O2 Flow Rate FiO2 07/07/25 07:44 83 18 Room Air 0.0 07/07/25 07:35 97 21 07/07/25 06:10 97.4 149/90 (109) General: Normal appearing and in no distress. HEENT: N/C/AT,PERRLA,EOMI Neck: Supple, with no jugular venous distention Chest: Symmetric expansion bilaterally Cardiovascular: Normal S1 and S2 without any S3-S4 gallop Abdomen: Nondistended with normoactive bowel sounds soft nontender no organomegaly. Extremities: No cyanosis, no clubbing no edema. Central Nervous System: Grossly nonfocal. Musculoskeletal: No obvious deformities. Diagnostic Data Last Recorded Lab Results: 07/07/25 0509 07/07/25 0509 Additional Plan 54-year-old male with a mediastinal mass that could be due to lung cancer. Differential diagnosis esophageal neoplasm. He is HOARSE and I think this could be due to the fact that he has paresis of the recurrent laryngeal nerve. The patient has consented to endobronchial ultrasound that will be performed today for tissue sampling in an effort to secured with a diagnosis. Risks and benefits were discussed. The biggest challenges that he is homeless and treatment follow-up might prove challenging. BRIGID GRIGSBY MD Jul 07, 2025 09:50
[2025-07-07] MEDS: LIDOcaine 4% (40 mg/ml) topical solution 50ml INH ONE (10:04)
[2025-07-07] MEDS: LIDOcaine 4% (40 mg/ml) topical solution 50ml MM ONE (10:04)
[2025-07-07] MEDS: fentaNYL/PF 50MCG/1 ML 2ML syringe ONE (11:39)
[2025-07-07] MEDS: MIDAZolam 1 MG/ML 5ML VIAL ONE (11:40)
--- NOTE | 2025-07-07 11:49 | PROCEDURE NOTE CC ---
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 Description The patient was taken into the endoscopy suite in the basement of the hospital. Continuous EKG and pulse oximetry were initiated. Supplemental oxygen was delivered via nasal cannula. The patient was sedated initially with 2 mg of Versed and 50 mcg of fentanyl. Additional sedation during the procedure was required (please see medication sheet). 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 The endobronchial ultrasound was then introduced and several passes were made and tissue samples obtained. There was minor bleeding. Endobronchial biopsies were then obtained using the disposable bronchoscope. Epinephrine was then used at the end of the procedure to reduce the amount of bleeding. The patient was then allowed to recover from his sedation. There were no complications. Estimated Blood Loss Negligible Complication None X-Ray Findings Not indicated BRIGID GRIGSBY MD Jul 07, 2025 11:49
--- NOTE | 2025-07-07 14:51 | RADIOLOGY REPORT ---
CHEST RADIOGRAPH REASON FOR EXAM: pre op bronch COMPARISON: CT CT CHEST W/ IV CONTRAST on DOS: 07/02/25, DI CHEST,TWO VIEWS on DOS: 07/02/25, DI CHEST, SINGLE VIEW on DOS: 06/24/25, DI CHEST,SINGLE VIEW on DOS: 06/11/25, CT CT CHEST on DOS: 05/31/25 TECHNIQUE: One view of the chest is provided FINDINGS: The cardiomediastinal silhouette is within normal limits for size. There are low inspirato ry volumes. There is right basilar airspace disease that may represent atelectasis or focal pneumoni tis. There is no significant pleural effusion. There is no pneumothorax. No acute osseous abnormali ty is identified. IMPRESSION: Right basilar airspace disease may represent atelectasis or focal pneumonitis. No pneumothorax.
--- NOTE | 2025-07-07 17:16 | PROGRESS NOTE ---
Daily Progress Note Providers to CC ~ Antibiotic Timeout Antibiotic Ordered?: Yes Subjective Patient is status post bronchoscopy with biopsy there is a a polypoid neoplasm was noted on the anterior aspect of the trachea just above the wellington. Objective Vital Signs Date Time Temp Pulse Resp B/P (MAP) Pulse Ox O2 Delivery O2 Flow Rate FiO2 07/07/25 15:12 78 18 Room Air 0.0 21 07/07/25 15:06 95 07/07/25 13:51 135/88 07/07/25 10:30 98.4 Result Diagram: 07/07/25 0509 07/07/25 0509 Gen. No acute distress alert and oriented 4, significantly hoarse voice Lungs clear to ascultation bilaterally, no wheezes rales or rhonchi appreciated Heart normal sinus rhythm no murmurs rubs or clicks noted Abdomen soft nontender bowel sounds are normoactive Lower extremities no clubbing cyanosis, nor edema appreciated bilaterally Problem\\Assessment\\Plan Problems/Diagnosis: (1) Pneumonia # respiratory distress # acute exacerbation of chronic COPD # aspiration pneumonia Nebulizer treatments with scheduled DuoNeb and PRN albuterol nebs and scheduled budesonide neb IV Zosyn Blood cultures are negative x1 day -07/03 improving -07/04 white blood cell count up trended however the patient is otherwise stable continue IV antibiotics and steroids -07/05 white blood cell count is downtrending and the patient feels better # dysphagia # tracheal mass Status post EGD with biopsy of the stomach that was negative Scheduled for bronchoscopy the patient did not keep his appointment the patient will need to reschedule with a bronchoscopy Bedside swallow evaluation with speech therapy recommended pureed diet and thin liquid 07/04 the staff reached out to Dr. Cruz a wood preparation supervisor's office and since the patient missed his bronchoscopy he will have to bring in records and requests bronchoscopy with the office. I did reach out and sent a text message to Dr. Wilde for inpatient bronchoscopy I have not heard back I will call Dr. Wilde tomorrow 07/05 I discussed the case with wood preparation supervisor who has a arranged with assistance of Dr. Cruz for a EBUS bronchoscopy on MondayJuly 07. 07/06 I received confirmation by respiratory therapist Mamta that the patient is scheduled for bronchoscopy at 10 tomorrow morning and just received a phone call from to make sure the patient is NPO after midnight for which the orders placed. 07/07 status post bronchoscopy and biopsy with wood preparation supervisor with the following findings:"a polypoid neoplasm was noted on the anterior aspect of the trachea just above the wellington." The patient has some mild hemoptysis post procedure wishes to be expected is complaining of a sore throat and Chloraseptic spray is ordered # methamphetamine use disorder # fentanyl use disorder Substance use navigator Karen Rizvi consult is ordered # NORBERTO possibly secondary to renal tubular stasis IV fluid resuscitation Monitor daily CMP Significantly improved # DVT prophylaxis SQ Lovenox SCDs Disposition: Anticipate discharge in the a.m. Date of Service: Jul 07, 2025 Billing Provider: SILVIA PATEL DO Common Visit Codes: [id number] INP/OBS CARE(HIGH) SILVIA PATEL DO Jul 07, 2025 17:16
[2025-07-07] MEDS: MIDAZolam 5mg/ml 2ml vial ONE (19:26)
[2025-07-07] MEDS: Chloraseptic (Phenol) Spray 177ml MM PRN (22:52)
[2025-07-08] VITALS (8 sets, daily range): BP systolic 138–144; BP diastolic 81; PULSE 60–88; RESP 16–20; TEMP 97.7–97.9; O2SAT 95–96
[2025-07-08] MEDS ORDERED: LEVO-65 PO (11:03)
--- NOTE | 2025-07-08 16:58 | DISCHARGE SUMMARY ---
Discharge Summary Providers to CC ~ Discharge Summary Admission Diagnosis: Aspiration pneumonia, esophageal mass Hospital Course DATE OF ADMISSION: 07/02/25 DATE OF DISCHARGE: 07/08/25 Discharge Diagnosis\\Comment: Aspiration pneumonia, covering for Gram-positive and Gram-negative Dysphagia Polypoid neoplasm, anterior aspect of trachea Prerenal NORBERTO 2/2 dehydration/vasomotor nephropathy Acute COPD exacerbation- ruled out Methamphetamine abuse Polysubstance abuse Operations\\Procedures: Bronchoscopy Biopsy Consultants: Medical Detailist Augie Green/ Dr. Crzu Complications: None Condition on DC: Stable New Medications: Albuterol Sulfate (Proair Respiclick) 90 Mcg Aer.pow.ba 2 PUFFS INH Q4HPRN PRN for shortness of breath, #1 EA 0 Refills Aspirin (Aspirin EC) 81 Mg Tablet.dr 1 TAB PO DAILY for 30 Days, #30 TAB Levofloxacin (Levofloxacin) 500 Mg Tablet 500 MG PO DAILY for 7 Days, #7 TAB Losartan Potassium (Losartan Potassium) 50 Mg Tablet 50 MG PO DAILY for 90 Days, #90 TAB Continued Medications: Home Med List (No Home Medications) Each Discharge Summary: History of Present Illness From H&P: "This is a 54-year-old male who presents to ED with feeling sick for some time however over the past week the patient has had worsening in his p.o. intake having difficulty swallowing liquids and solids he also has had a cough and shortness of the breath for one-week duration the patient does have laryngitis as well. Presents to ED [place] [address] which is up trending and of 1.45 which is the highest creatinine we have on record. CTA of the chest demonstrates a 5.6 x 9.5 cm mid esophageal mass with enlarged hilar and mediastinal lymph node. The patient is scheduled for outpatient bronchoscopy however the patient did not keep his appointment. Patient had an EGD with biopsy of the stomach which was negative for cancer." Hospital Course Diagnostic findings were notable for elevated lactic acid, CT chest revealing 5.6 x 9.5 cm mid esophageal mass with enlarged hilar and mediastinal lymph nodes concerning for metastatic disease as well as medial right lower lobe pneumonia. Patient was treated with empirical antibiotics and intravenous fluids. Case was consulted with national sales representative Dr. Wilde and the patient underwent EBUS bronchoscopy with findings notable for mediastinal neoplasm growing into the anterior trachea just above the wellington associated with the extensive mediastinal lymphadenopathy. Biopsy was taken during procedure. Patient did not experience further complications throughout the entire hospital stay and remained clinically and hemodynamically stable. Patient was seen and examined on the day of discharge. On day of discharge, vss, on room air, labs unremarkable. Patient tolerates pureed diet well. All labs, diagnostic workups, discharge plan discussed with patient in details during visit before discharge. All questions and concerns answered to the best of my professional knowledge. Patient is to be discharged to home to self and to follow up with PCP and national sales representative Dr. Wilde/Anthony within 2 weeks. Physical Exam General: Generalized weakness, A&Ox 3, NAD HEENT: Normocephalic, PERRLA Neck: Supple, trachea midline, no JVD Chest: Clear to auscultation bilaterally Cardiovascular: RRR, S1&S2 GI: Soft and nontender Extremities: No cyanosis/clubbing/or edema PRIVATE BRANCH EXCHANGE OPERATOR: CN II-XII intact, no focal deficits Musculoskeletal: No paraspinal muscle tenderness, no muscle spasm Skin: Warm and intact *Problems/Diagnosis: (1) Pneumonia Status: Acute Total Time Spent on D/C: > 30 Minutes Date of Service: Jul 08, 2025 Billing Provider: ITZEL BILLINGS Common Visit Codes: 03375-FHG/OBS DISCH DAY >30min ITZEL BILLINGS Jul 08, 2025 16:58
== END 2025-07-08 18:51 | disposition home or self-care (01) | DRG 137 ==
LOC: ER 13:12 → ED HOLD 17:56 → SUR 3N 20:00
PROVIDERS: ADMIT Family Medicine; ATTEND Family Medicine
PROC: BW241ZZ Computerized Tomography (CT Scan) of Chest and Abdomen using Low Osmolar Contrast (ICD-10-PCS; 2025-07-02)
PROC: 0BB18ZX Excision of Trachea, Via Natural or Artificial Opening Endoscopic, Diagnostic (ICD-10-PCS; principal; 2025-07-07)
DX: J69.0 Pneumonitis due to inhalation of food and vomit (principal); N17.0 Acute kidney failure with tubular necrosis; E87.20 Acidosis, unspecified; R13.10 Dysphagia, unspecified; F20.9 Schizophrenia, unspecified; J44.1 Chronic obstructive pulmonary disease with (acute) exacerbation; F32.A Depression, unspecified; R59.0 Localized enlarged lymph nodes; F17.210 Nicotine dependence, cigarettes, uncomplicated; K22.9 Disease of esophagus, unspecified; E86.0 Dehydration; F15.10 Other stimulant abuse, uncomplicated; Z59.00 Homelessness unspecified; Z79.899 Other long term (current) drug therapy; Z82.49 Family history of ischemic heart disease and other diseases of the circulatory system
CPT/HCPCS: 31622; 31625; 31628; 31653; 31654; 36415; 71045; 71046; 71270; 80048; 80053; 83605; 83735; 83880; 85007; 85025; 87040; 87081; 87811; 88184; 88185; 92508; 92616; 94640; 94760; 96361; 96365; 96372; 96375; 97116; 97161; 99285; A6258; G0378; J0169; J0696; J1171; J1650; J2060; J2250; J2543; J2919; J3010; J7030; Q9967

== ENCOUNTER 2025-07-17 18:04 | Emergency (ER) | payer MEDICAID ==
[~2025-07-17] VITALS: Ht 185.4 cm; Wt 79.5 kg
[~2025-07-17 18:04] MED LIST changes: -ALBUTEROL INH; -FAMO-128 PO; +NO HOME MEDS
[2025-07-17 18:13] VITALS: RESP 18
--- NOTE | 2025-07-17 18:35 | ELECTROCARDIOGRAPH REPORT ---
[facility] Test Date: 2025-07-17 Test Time: 18:34:02 Pat Name: JT MCLAUGHLIN Department: [facility] Patient ID: [facility]-[id number] Room: Gender: M Contract Runner: : 1970 Requested By: HOMERO HUDDLESTON Order Number: [id number] Reading MD: Dr. Rush Chávez Measurements Intervals [place] Rate: 95 P: 81 [place]: 152 QRS: 69 QRSD: 87 T: 73 QT: 346 QTc: 435 Interpretive Statements Sinus rhythm Probable left atrial enlargement Electronically Signed On 07-23-2025 18:49:[address] Rush Chávez Please click the below link to view image of tracing.
--- NOTE | 2025-07-17 19:32 | Physician Documentation ---
History of Present Illness ~ Chief Complaint: Weakness Stated Complaint: WEAKNESS Time Seen by MD: 23:39 OK to notify your PCP?: Yes Primary Medical Doctor: None HPI This is a 54-year-old male who was brought in by EMS for generalized weakness, while triage patient is somewhat is hostile towards nursing staff and will not elaborate on his chief complaint. History as above. Patient feeling generally weak with associated nausea with vomiting x2. No diarrhea. Patient also complains of generalized body aches as well. Medication Reconciliation Allergies: Coded Allergies: No Known Allergies (Unverified , 07/02/25) Scheduled Aspirin (Aspirin EC), 1 TAB PO DAILY Ibuprofen* (Motrin*), 800 MG PO Q8H Losartan Potassium (Losartan Potassium), 50 MG PO DAILY Ondansetron 8mg ODT (Ondansetron Odt), 1 TAB PO Q6H Scheduled PRN Albuterol Sulfate (Proair Respiclick), 2 PUFFS INH Q4HPRN PRN for shortness of breath Miscellaneous Medications Home Med List (No Home Medications), (Reported) Discontinued Medications Levofloxacin (Levofloxacin), 500 MG PO DAILY Discontinued Reason: Auto Discontinued Past Medical History Past Medical History: COPD, Depression, Schizophrenia Past Surgical History: orthopedic surgeries Patient History: FH: myocardial infarction Maternal grandmother Alcohol Use: Alcoholic Drug Use: methamphetamine Lives with: Other Lives In: Homeless Occupation: unemployed Review of Systems ROS As stated above in the HPI, otherwise all systems are reviewed and negative. Physical Exam Vital Signs: Temperature: 98.5, Source: Temporal, Heart Rate: 96, Respiratory Rate: 18, BP: 141/76, Pulse Oximetry: 97, Weight: 79.500 Oxygen Flow Rate: 0 Physical Exam General: Patient is awake, alert, oriented x4 in no acute distress and well appearing.~ Head: Normocephalic and atraumatic. Eyes: Conjunctival normal. EOMI. PERRL. ENT: Mucous membranes moist. Neck: Supple, trachea is midline. Chest: Clear to auscultation bilaterally without rales, rhonchi, or wheezes. There is no accessory muscle use or retractions. Cardiac: RRR without murmurs, gallops, or rubs. Abd: Soft, nondistended, nontender, with normoactive bowel sounds. No guarding, rebound, or rigidity. Progress Results/Orders Results/Orders Orders - CLYDE PUENTE MD Covid19 Binax Poc Result Entry (07/17/25 23:42) Completed Orders - CLYDE PUENTE MD Electrocardiogram (07/17/25 18:16) Ondansetron Disint. Tablet (Zofran Odt T (07/17/25 23:45) Ibuprofen Tablet (Motrin Tablet) (07/17/25 23:45) Acetaminophen 325mg Tablet (Tylenol Tabl (07/17/25 23:45) Cbc/Diff (07/17/25 23:42) BMP (07/17/25 23:42) Procalcitonin (07/17/25 23:42) Medications Received in ER Medications (Trade) Dose Ordered Sig/Eugenie Route PRN Reason Start Time Stop Time Status Last Admin Dose Admin (Zofran ODT tablet) 8 mg ONCE ONCE PO 07/17/25 23:45 07/17/25 23:46 DC 07/17/25 23:52 8 MG (Motrin tablet) 800 mg ONCE ONCE PO 07/17/25 23:45 07/17/25 23:46 DC 07/17/25 23:50 800 MG (Tylenol tablet) 650 mg ONCE ONCE PO 07/17/25 23:45 07/17/25 23:46 DC 07/17/25 23:50 650 MG Vital Signs 07/17/25 07/17/25 18:13 22:17 Temp 98.5 98.4 Pulse 96 88 Resp 18 B/P (MAP) 141/76 130/80 (97) Pulse Ox 97 99 O2 Flow Rate 0 Laboratory Tests Test 07/17/25 23:35 07/17/25 23:50 White Blood Count 14.1 H Red Blood Count 4.46 L Hemoglobin 12.7 L Hematocrit 38.5 L Mean Corpuscular Volume 86.3 Mean Corpuscular Hemoglobin 28.4 Mean Corpuscular Hemoglobin Concent 32.9 L Red Cell Distribution Width 17.4 H Platelet Count 368 Mean Platelet Volume 8.2 Neutrophils (%) (Auto) 72.2 Lymphocytes (%) (Auto) 9.5 L Monocytes (%) (Auto) 7.7 Eosinophils (%) (Auto) 9.9 H Basophils (%) (Auto) 0.7 Neutrophils # (Auto) 10.2 H Lymphocytes # (Auto) 1.3 Monocytes # (Auto) 1.1 H Eosinophils # (Auto) 1.4 H Basophils # (Auto) 0.1 CBC Comment Sodium Level 144 Potassium Level 3.9 Chloride Level 105 Carbon Dioxide Level 34.1 H Anion Gap 5 L Blood Urea Nitrogen 16 Creatinine 1.12 H Estimated GFR/1.73 m2 69 BUN/Creatinine Ratio 14.3 Glucose Level 103 Calcium Level 9.3 Albumin 2.9 L Procalcitonin < 0.05 Chemistry Comments SARS-CoV-2 Antigen (Rapid) Negative EKG/XRAY/CT/US/VASC/MRI EKG : Additional Comment EKG interpreted by myself shows time of 1834, rate 95, sinus rhythm, normal axis, no ST changes Medical Decision Making Findings Patient presents to the emergency room with vomiting generalized body aches. Differentials include but are not limited to viral syndrome, electrolyte disturbances, anemia, kidney failure therefore emergent labs ordered which were reassuring. Given constellation of symptoms I feel patient is suffering from viral syndrome. Symptomatic treatment only. Departure Disposition: HOME / SELF CARE / HOMELESS Impression: Primary Impression: Viral syndrome Condition: Stable Discharge Instructions: Viral Illness, Adult Referrals: NO PRIMARY CARE PROVIDER (PCP) Prescriptions Ibuprofen* (Motrin*) 400 Mg Tablet 800 MG PO Q8H, #30 TAB Prov: CLYDE PUENTE MD 07/18/25 Ondansetron 8mg ODT (Ondansetron Odt) 8 Mg Tab.rapdis 1 TAB PO Q6H for nausea/vomiting for 3 Days, #12 TAB 0 Refills Prov: CLYDE PUENTE MD 07/18/25 Education Educated: Patient Educated regarding: diagnosis, treatment, need for follow up Signature Scribe Signature: No scribe Attestation: The note accurately reflects work and decisions made by me.Clyde Puente MD 07/18/25 00:27 EDELMIRA WOLFF Jul 17, 2025 19:32 CLYDE PUENTE MD Jul 17, 2025 23:44
[2025-07-17 22:17] VITALS: BP 130/80; PULSE 88; O2SAT 99
[2025-07-17] MEDS: ibuprofen tablet 400 MG TABLET PO ONE (23:50)
[2025-07-17] MEDS: ondansetron 4mg rapidly disintigrating tab PO ONE (23:52)
[2025-07-18 00:05] LABS: MEAN PLATELET VOLUME 8.2 FL (7.4-10.4); RED CELL DISTRIBUTION WIDTH 17.4 % (11.5-14.5)
[2025-07-18 00:10] LABS: CREATININE 1.12 MG/DL (0.60-1.10); TOTAL CARBON DIOXIDE 34.1 MMOL/L (24-32); eCRCL 87 ML/MIN; eGFR 69 ML/MIN
[2025-07-18] MEDS ORDERED: ONDA-245 PO (00:27)
[2025-07-18] MEDS ORDERED: IBUP-1984 PO (00:27)
[2025-07-18 00:38] VITALS: TEMP 98.4
[2025-07-18 01:03] LABS: BANDS% (MANUAL) 4.0 % (0-10); EOSINOPHILS % (MANUAL) 4.0 % (0-6); LYMPHOCYTES % (MANUAL) 11.0 % (21-51); MONOCYTES % (MANUAL) 7.0 % (2-12); NEUTROPHILS % (MANUAL) 74.0 % (42-75); PLATELET ESTIMATE NORMAL
[2025-07-18 01:04] LABS: ELLIPTOCYTES FEW
== END 2025-07-18 00:42 | disposition home or self-care (01) ==
LOC: ER 18:04
DX: B34.9 Viral infection, unspecified (principal); F20.9 Schizophrenia, unspecified; J44.9 Chronic obstructive pulmonary disease, unspecified; F32.A Depression, unspecified; F15.90 Other stimulant use, unspecified, uncomplicated; F10.90 Alcohol use, unspecified, uncomplicated; Z20.822 Contact with and (suspected) exposure to COVID-19; Z79.82 Long term (current) use of aspirin; Y90.9 Presence of alcohol in blood, level not specified
CPT/HCPCS: 36415; 80048; 84145; 85007; 85025; 87811; 93005; 99284

== ENCOUNTER 2025-08-26 02:16 | Emergency (ER) | payer MEDICAID ==
[~2025-08-26] VITALS: Ht 185.4 cm; Wt 55.9 kg
[~2025-08-26 02:16] MED LIST changes: -ASPI81TA52 PO; +ONDA-245 PO
--- NOTE | 2025-08-26 02:24 | ELECTROCARDIOGRAPH REPORT ---
[facility] Test Date: 2025-08-26 Test Time: 02:21:13 Pat Name: JT MCLAUGHLIN Department: EMERGENCY ROOM Patient ID: [id number] Room: Gender: M Early Interventionist: : 1970 Requested By: MEI FRANKEL Order Number: [id number] Reading MD: Measurements Intervals [place] Rate: 98 P: 86 [place]: 164 QRS: 88 QRSD: 96 T: 64 QT: 382 QTc: 488 Interpretive Statements Sinus rhythm Biatrial enlargement Left ventricular hypertrophy ST elevation, consider inferior injury Borderline prolonged QT interval Baseline wander in lead(s) II,aVF,V3,V4,V6 Please click the below link to view image of tracing.
[2025-08-26 02:25] VITALS: TEMP 98.1
--- NOTE | 2025-08-26 02:46 | RADIOLOGY REPORT ---
CHEST RADIOGRAPH Indication: CP Technique: Single frontal view of the chest was obtained COMPARISON: DI CHEST,SINGLE VIEW on DOS: 07/07/25, CT CT CHEST W/ IV CONTRAST on DOS: 07/02/25, DI CHEST,TWO VIEWS on DOS: 07/02/25, DI CHEST,SINGLE VIEW on DOS: 06/24/25, DI CHEST,SINGLE VIEW on DOS: 06/11/25 FINDINGS: Lines and Tubes: None Lungs: Clear Pleura: No effusion. No pneumothorax. Cardiomediastinal contours: Unremarkable Bones: Unremarkable IMPRESSION: 1. No acute disease.
[2025-08-26 03:10] LABS: MEAN PLATELET VOLUME 10.4 FL (7.4-10.4); RED CELL DISTRIBUTION WIDTH 17.2 % (11.5-14.5)
[2025-08-26 03:21] LABS: CREATININE 2.06 MG/DL (0.60-1.10); PRO BRAIN NATRIURETIC PEPTIDE 460 PG/ML (0-125); TOTAL CARBON DIOXIDE 34.8 MMOL/L (24-32); eCRCL 33 ML/MIN; eGFR 34 ML/MIN
[2025-08-26] MEDS: normal saline 1000ml 1,000 ML IV ONE ×2 (03:39→05:15)
--- NOTE | 2025-08-26 04:30 | Physician Documentation ---
History of Present Illness ~ Chief Complaint: Weakness Stated Complaint: SHORT OF BREATH Time Seen by MD: 02:27 OK to notify your PCP?: Yes Primary Medical Doctor: None Mode of Arrival: EMS HPI Pt BIBA for worsening SOB, esophageal pain, fell yesterday hit head, denies blood thinners. Reports hx lung cancer, feeding tube, weakness. homeless but at transitional housing. Denies fever, chills, N/V/D. Medication Reconciliation Allergies: Coded Allergies: No Known Allergies (Unverified , 08/26/25) Scheduled Losartan Potassium (Losartan Potassium), 50 MG PO DAILY Ondansetron 8mg ODT (Ondansetron Odt), 1 TAB PO Q6H Scheduled PRN Albuterol Sulfate (Proair Respiclick), 2 PUFFS INH Q4HPRN PRN for shortness of breath Miscellaneous Medications Home Med List (No Home Medications), (Reported) Past Medical History Past Medical History: COPD, Depression, Schizophrenia Past Surgical History: orthopedic surgeries Patient History: FH: myocardial infarction Maternal grandmother Alcohol Use: Alcoholic Drug Use: methamphetamine Lives with: Other Lives In: Homeless Occupation: unemployed Review of Systems All Other Systems at this time: Reviewed and Negative Physical Exam Vital Signs: RN Vital Signs have been reviewed: Yes, Temperature: 98.1, Source: Oral, Heart Rate: 92, Respiratory Rate: 16, BP: 114/79, Pulse Oximetry: 97, Weight: 55.900 Oxygen Flow Rate: 0 Physical Exam HEENT: PERRL, moist oral mucosa, EOMI Pulmonary: No respiratory distress Cardiac: RRR, no murmur, rub or gallop GI: nondistended, soft, nontender, no guarding, no rebound MSK: no deformity Skin: w/d/i, no rash Neuro: alert, nonfocal Psych: normal affect Progress Results/Orders Results/Orders Orders - MEI FRANKEL MD Chest,Single View (08/26/25 02:35) Monitor (08/26/25 02:18) Saline Lock (08/26/25 02:18) Oxygen (08/26/25 02:18) Hs Troponin I W Calculations (08/26/25 04:18) Hs Troponin I W Calculations (08/26/25 05:18) Urinalysis, Cult If Indicated (08/26/25 03:17) Completed Orders - MEI FRANKEL MD Chest,Single View (08/26/25 02:35) Cbc/Diff (08/26/25 02:18) BMP (08/26/25 02:18) PBNP (08/26/25 02:18) Electrocardiogram (08/26/25 02:18) Hs Troponin I W Calculations (08/26/25 02:18) Normal Saline 1000ml (0.9% Sodium Chlori (08/26/25 03:25) Medications Received in ER Medications (Trade) Dose Ordered Sig/Eugenie Route PRN Reason Start Time Stop Time Status Last Admin Dose Admin Sodium Chloride 1,000 ml @ 1,000 mls/hr ONCE ONCE IV 08/26/25 03:25 08/26/25 04:24 DC 08/26/25 03:39 1,000 MLS/HR Vital Signs 08/26/25 08/26/25 08/26/25 08/26/25 02:25 02:41 02:41 03:41 Temp 98.1 Pulse 91 93 92 Resp 14 16 16 16 B/P (MAP) 126/87 116/84 (95) 114/79 (91) Pulse Ox 96 95 97 O2 Flow Rate 0 0 Laboratory Tests Test 08/26/25 02:49 White Blood Count 20.5 H Red Blood Count 5.08 Hemoglobin 14.6 Hematocrit 43.3 Mean Corpuscular Volume 85.3 Mean Corpuscular Hemoglobin 28.7 Mean Corpuscular Hemoglobin Concent 33.6 Red Cell Distribution Width 17.2 H Platelet Count 301 Mean Platelet Volume 10.4 Neutrophils (%) (Auto) 72.3 Lymphocytes (%) (Auto) 7.1 L Monocytes (%) (Auto) 5.8 Eosinophils (%) (Auto) 13.9 H Basophils (%) (Auto) 0.9 Neutrophils # (Auto) 14.8 H Lymphocytes # (Auto) 1.5 Monocytes # (Auto) 1.2 H Eosinophils # (Auto) 2.8 H Basophils # (Auto) 0.2 CBC Comment Sodium Level 135 Potassium Level 3.5 Chloride Level 90 L Carbon Dioxide Level 34.8 H Anion Gap 10 Blood Urea Nitrogen 70 H Creatinine 2.06 H Estimated GFR/1.73 m2 34 BUN/Creatinine Ratio 34.0 H Glucose Level 162 H Calcium Level 9.2 Troponin I High Sensitivity 15 Pro-B-Type Natriuretic Peptide 460 H Albumin 3.0 L Chemistry Comments Medical Decision Making Additional information obtaine: N/A Findings 55 year old male with weakness. Exam and vitals nonspecific, workup demonstrated prerenal azotemia. IVF, care transferred to hospitalist. Differential Dx:Considerations: Include: anemia, dehydration, electrolyte imbalance, encephalopathy, Guillain-[place], hypoglycemia, hypotension, hypovolemia, myocardial infarction, renal failure Departure Disposition: ADMITTED INPATIENT Admitted to Inpatient Unit: to hospitalist Impression: Primary Impression: Acute prerenal azotemia Condition: Stable Referrals: NO PRIMARY CARE PROVIDER (PCP) Education Educated: Patient Educated regarding: diagnosis, treatment, prognosis, need for follow up Signature Scribe Signature: . Attestation: . MEI FRANKEL MD Aug 26, 2025 04:29
[2025-08-26] MEDS: acetaminophen 1,000mg/100ml IV 100 ML IV STA (05:15)
[2025-08-26 06:30] VITALS: BP 106/70; PULSE 78; RESP 16; O2SAT 97
[2025-08-27] MEDS ORDERED: [UNRECOGNIZED DRUG - CODE] PO (14:56)
== END 2025-08-26 06:54 | disposition admitted as inpatient to this hospital (09) ==
LOC: ER 02:16
DX: R79.89 Other specified abnormal findings of blood chemistry (principal); J44.9 Chronic obstructive pulmonary disease, unspecified; F20.9 Schizophrenia, unspecified; F10.90 Alcohol use, unspecified, uncomplicated; F15.90 Other stimulant use, unspecified, uncomplicated; F32.A Depression, unspecified; Z85.118 Personal history of other malignant neoplasm of bronchus and lung; Z59.00 Homelessness unspecified; Z79.899 Other long term (current) drug therapy; Z98.890 Other specified postprocedural states; Z56.0 Unemployment, unspecified; Y90.9 Presence of alcohol in blood, level not specified
CPT/HCPCS: 71045; 80048; 83880; 84484; 85025; 93005; 96361; 96365; 99285; J0131; J7030